=== PATIENT | male | born 1940 | race Caucasian/White ===

== ENCOUNTER 2020-05-01 11:04 | Inpatient (IN) ==
[2020-05-01] MEDS ORDERED: MAGNESIUM SULFATE / D5W 1 GM/100 ML BAG IV SCH (12:12)
[2020-05-01] MEDS ORDERED: SODIUM CHLORIDE 0.9% 1000ML 1,000 ML IV SCH (12:15)
--- NOTE | 2020-05-01 12:38 | XRay Report ---
XR chest 1V portable CLINICAL HISTORY: weakness COMPARISON STUDY: 01/20/2018 FINDINGS: The heart is at the upper limits of normal in size. There is a left subclavian dual-chamber central venous pacemaker. There are asymmetric bilateral pulmonary airspace opacities. Likely diagno stic considerations include multifocal pneumonitis versus asymmetric edema. There are no significant pleural effusions.[ IMPRESSION: Asymmetric bilateral pulmonary airspace opacities. A multifocal pneumonia is favored over asymmetric pulmonary edema. Correlation with Covid 19 testing is recommended. Clinical and radiograp hic follow-up is recommended as well. ACT 112: Negative or not required by law. Electronically signed by: Maynor Amezquita M.D. 05/01/2020 12:37 PM
[2020-05-01 13:23] LABS: Basophils # (auto) 0.01 K/uL (0-0.2); Basophils % (auto) 0.2 %; Hematocrit (blood only) 52.5 % (42-52); Hemoglobin 17.8 g/dL (14.0-18.0); Immature Granulocytes # (auto) 0.02 K/uL (0.00-0.02); Immature Granulocytes % (auto) 0.4 %; Lymphocytes # (auto) 1.17 K/uL (1.2-3.4); Lymphocytes % (auto) 20.9 %; Mean Corpuscular Hgb Conc 33.9 g/dL (32-36); Mean Corpuscular Volume 91.5 fL (80-100); Mean Platelet Volume 10.7 fL (7.4-10.4); Monocytes # (auto) 0.46 K/uL (0.11-0.59); Monocytes % (auto) 8.2 %; Neutrophils # (auto) 3.94 K/uL (1.4-6.5); Neutrophils % (auto) 70.3 %; Platelet Count 176 K/uL (130-400); RDW Coefficient of Variation 13.8 % (11.5-14.5); RDW Standard Deviation 46.2 fL (36.4-46.3); Red Blood Count 5.74 M/uL (4.7-6.1)
[2020-05-01] MEDS ORDERED: dilTIAZem HCl 5 MG/ML 5 ML VIAL IV STA (13:34)
[2020-05-01] MEDS ORDERED: STAT IV Infusion **Titration per Protocol STA (13:34)
[2020-05-01 13:44] LABS: Alanine Aminotransferase 25 U/L (12-78); Albumin Level 3.4 gm/dl (3.4-5.0); Aspartate Aminotransferase 29 U/L (15-37); Blood Urea Nitrogen 27 mg/dl (7-18); Calcium 8.8 mg/dl (8.5-10.1); Carbon Dioxide 29 mmol/L (21-32); Chloride 105 mmol/L (98-107); Creatinine Clr Calc Pharmacy 43.2 ml/min; Est GFR (African American) 57.2; Est GFR (Non-African American) 49.3; Glucose 163 mg/dl (70-99); Lipase 101 U/L (73-393); Magnesium 2.4 mg/dl (1.8-2.4); Potassium 4.1 mmol/L (3.5-5.1); Sodium 139 mmol/L (136-145)
[2020-05-01 13:45] LABS: Influenza A virus by PCR Negative (Negative); Influenza B virus by PCR Negative (Negative)
[2020-05-01 13:51] LABS: Prothrombin Time 62.8 Seconds (9.0-12.0)
[2020-05-01 13:55] LABS: Albumin Globulin Ratio 0.8 (0.9-2); Alkaline Phosphatase 63 U/L (45-117); Globulin 4.3 gm/dl (2.5-4.0); Total Protein 7.7 gm/dl (6.4-8.2); Troponin I < 0.015 ng/ml (0-0.045)
[2020-05-01 14:05] LABS: INR 6.6 (0.9-1.1)
[2020-05-01] MEDS ORDERED: DEXAMETHASONE SOD INJ 10 MG/ML VIAL IV ONE (14:23)
[2020-05-01] MEDS: dilTIAZem HCL 125 MG in DEXTROSE 5% 100 ML IV SCH (14:24)
--- NOTE | 2020-05-01 14:26 | Electrocardiogram Report ---
Test Reason : Blood Pressure : / mmHG Vent. Rate : 113 BPM Atrial Rate : 174 BPM P-R Int : 000 ms QRS Dur : 080 ms QT Int : 290 ms P-R-T Axes : 000 -26 004 degrees QTc Int : 397 ms Poor data quality, interpretation may be adversely affected Atrial fibrillation with rapid ventricular response Nonspecific ST abnormality Abnormal ECG When compared with ECG of 20-JAN-2018 12:46, T wave inversion more evident in Inferior leads Confirmed by Lonnie Alvarez ([id number]) on 05/01/2020 2:25:49 PM Referred By: REFERRED SELF Confirmed By:Lonnie Alvarez
--- NOTE | 2020-05-01 15:35 | History & Physical Report ---
Date of Service May 01, 2020 History of Present Illness Primary Care Provider: NO PCP Oswaldo Shah is an 80 year old male who presents to the ER with 2 weeks of shortness of breath, coughing up brown gunk. Took metoporolol only this morning. Chronic a. gib quit smoking 2015 Allergies Allergy/AdvReac Type Severity Reaction Status Date / Time No Known Allergies Allergy Verified 05/01/20 13:40 Home Medications Medication Instructions Recorded Confirmed Type digoxin 125 mcg (0.125 mg) tablet 125 mcg PO QAM tab 02/20/19 05/01/20 History metoprolol succinate 50 mg 50 mg PO BID tab 02/20/19 05/01/20 History tablet,extended release 24 hr multivitamin 1 tab PO QAM 02/20/19 05/01/20 History warfarin 6 mg tablet See Rx Instructions PO .COMPLEX 02/21/19 05/01/20 History tab methimazole 2.5 mg PO QAM 05/01/20 05/01/20 History Past Med/Surg History Medical History Goiter Graves disease Hyperthyroidism Pacemaker 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) Surgical History History of back surgery History of ear surgery History of permanent cardiac pacemaker placement Hx of colonoscopy Social History Smoking Status: Never smoker Hx Alcohol Use: Yes marital status: current occupational status: retired other: 5 Children Feels Safe at Home: Yes Results & Data Results & Data ([facility]) Vital Signs (Past 12 Hours) Vital Signs Temp Pulse Pulse Resp BP BP Pulse Ox 05/01/20 14:20 87 23 95 05/01/20 14:10 88 91 05/01/20 14:01 90 118/72 92 05/01/20 14:00 99 H 92 05/01/20 13:50 96 H 20 93 05/01/20 13:40 96 H 93 05/01/20 13:30 92 H 18 121/85 91 05/01/20 13:20 101 H 91 05/01/20 13:10 115 H 91 05/01/20 13:04 120 H 20 108/77 91 05/01/20 13:00 99 H 108/77 91 05/01/20 12:50 121 H 22 92 05/01/20 12:40 96 H 92 05/01/20 12:30 133 H 91 05/01/20 12:20 109 H 16 91 05/01/20 12:13 115 H 20 91 05/01/20 12:01 153 H 17 128/84 93 05/01/20 11:11 36.6 C 65 20 103/66 99 PG Care Time/CCT Total # of Minutes Spent Total Time Spent with Patient: Total time spent is greater than 50% in coordina tion of care (as documented) at patient's floor/unit and/or counseling patient: Coding
--- NOTE | 2020-05-01 16:43 | History & Physical Report ---
Date of Service May 01, 2020 Assessment & Plan (1) Pneumonia due to COVID-19 virus: Hypoxic in the ED with sats into the upper 80s on room air - improved with 2L of O2 - Continue O2 therapy titrated to effect - Dexamethasone started in the ED - continue 6 mg IV daily up to a 10 day course - Meets criteria for remdesevir with hypoxia requiring O2 therapy and creatinine clearance >30 - ordered 5 day course, checking daily CMP (2) Atrial fibrillation with RVR: On Toproxl XL 100 mg BID and digoxin 0.125 mg daily as outpatient - currently rate-controlled on diltiazem gtt. Suspect related to #1. - Continue home meds and diltiazem for now with close monitoring of rate on telemetry - Consult cardiology for additional recommendations for ongoing management - Warfarin on hold due to elevated INR at presentation (3) Graves disease: TSH on admission is 3.15 - Continue methimazole at home dose (4) COPD (chronic obstructive pulmonary disease): Not on any medications for this at baseline - no wheezing at present so would not add prn inhalers (5) Elevated INR: On chronic anticoagulation due to history of atrial fibrillation - warfarin currently on hold - Daily INR - No additional pharmacologic DVT prophylaxis ordered at present due to supratherapeutic INR - will need to monitor closely (6) Pre-diabetes: Pt states that he does not check his sugars nor take any medications for this at home. However, likely to have hyperglycemia on dexamethasone so will need to monitor closely. - Diabetic diet - Check A1c in the morning - Sliding scale insulin coverage Pt seen and reviewed with collaborating physician, Dr. Pereyra. Plan of care discussed and as outlined above. Pt requests to be a DNR/DNI. Dolores Britton PA-C History of Present Illness Chief Complaint: Cough x 10 days Primary Care Provider: Jenny Charles DO This is a 80 y/o male with a PMH of PAF on chronic anticoagulation, tachy-chaz syndrome s/p PPM placement, COPD, Graves disease, and prediabetes who presented to the ED today with ongoing productive cough and chest congestion. He states that his was concerned about his lack of improvement and wanted him evaluated so he came to the ED. In the ED, he was found to be in atrial fibrillation with RVR and diagnosed with COVID-19. CXR was concerning for multifocal pneumonia and pt found to have hypoxia with pulseox on room air in the upper 80s. He was started on 2L of O2 with improvement. Given diltiazem 10 mg IV x 1 then started on gtt for rate control. Pt currently reports feeling m uch better than on arrival. His symptoms started about a week and a half ago with chest congestion then a cough productive of green to brown sputum. Denies hemoptysis. He has also noticed lightheadedness with ambulation although denies dyspnea on exertion. No shortness of breath at rest or wheezing. He denies chest pain but has noted chest tightness. Denies palpitations or racing heart even when he was in afib with RVR. He has noted a loss of appetite with abnormal taste and small at home although this now seems to be improving. Two days ago he noted that his urine was "strong" and very dark in color but denies hematuria. He reports drinking adequate fluids - water, danish elfego, red marlyn tea. Denies N/V/D. He has been fatigued but denies myalgias, back pain or neck pain. No known contact with someone who is COVID positive. No sick contacts at home. Allergies Allergy/AdvReac Type Severity Reaction Status Date / Time No Known Allergies Allergy Verified 05/01/20 13:40 Home Medications Medication Instructions Recorded Confirmed Type digoxin 125 mcg (0.125 mg) tablet 125 mcg PO QAM tab 02/20/19 05/01/20 History multivitamin 1 tab PO QAM 02/20/19 05/01/20 History methimazole 2.5 mg PO QAM 05/01/20 05/01/20 History metoprolol succinate 100 mg PO Q12H 05/01/20 05/01/20 History warfarin 2.5 mg PO MOWEFR 05/01/20 05/01/20 History warfarin 5 mg PO SUTUTHSA 05/01/20 05/01/20 History 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) Surgical History History of back surgery 1970 History of ear surgery History of permanent cardiac pacemaker placement Hx of colonoscopy Family History Mother Atrial fibrillation Father Stroke Social History (Updated 05/01/20 @ 16:07 by Cynthia Carvajal PA-C) Smoking Status: Former smoker packs per day: 1; Years Smoked: 45; Hx Alcohol Use: No Hx Substance Use: No Preferred Language: Uzbek Communication Ability: Effective marital status: current occupational status: retired other: 5 Children Feels Safe at Home: Yes Review of Systems Review of Systems: All systems reviewed & are unremarkable except as noted in HPI & below Constitutional: + fatigue and + anorexia; no fever, no chills and no body aches Ear, Nose, Mouth, Throat: + sore throat; no nasal congestion and no nasal discharge Respiratory: as per Subjective / HPI, + cough, + chest congestion and + change in sputum; no hemoptysis and no wheezing Cardiovascular: no chest pain, no dyspnea on exertion, no palpitations, no syncope and no edema Gastrointestinal: no abdominal pain, no nausea, no vomiting, no diarrhea/loose stools and no blood in stools Genitourinary: no difficulty urinating, no urinary frequency and no hematuria Musculoskeletal: no back pain, no neck pain, no myalgia and no muscle weakness Integumentary: no rash, no non-healing lesions and no skin ulcer Neurologic: + dizziness; no generalized weakness and no headache(s) Physical Exam Constitutional: well developed and well nourished; no acute distress Eyes: + anicteric sclerae Neck: trachea midline Respiratory: no respiratory distress and no labored breathing Auscultation: lungs clear to auscultation bilaterally and + diminished lung sounds (mildly - cough at times with deep breathing); no rales and no rhonchi Cardiovascular: Rate/Rhythm: + irregularly irregular Heart Sounds: no gallop and no cardiac rub Extremities: no pedal edema Gastrointestinal (Abdomen): Inspection/Auscultation: normal bowel sounds; abdomen not distended Percussion/Palpation: abdomen soft; abdomen nontender Musculoskeletal: Extremities: no cyanosis Skin: no rashes, warm and dry Neurologic: no focal motor deficits Psychiatric: A+Ox3, euthymic affect Results & Data Results & Data ([facility]) Vital Signs (Past 12 Hours) Vital Signs Temp Pulse Pulse Resp BP BP Pulse Ox 05/01/20 15:00 79 24 121/79 96 05/01/20 14:20 87 23 95 05/01/20 14:10 88 91 05/01/20 14:01 90 118/72 92 05/01/20 14:00 99 H 92 05/01/20 13:50 96 H 20 93 05/01/20 13:40 96 H 93 05/01/20 13:30 92 H 18 121/85 91 05/01/20 13:20 101 H 91 05/01/20 13:10 115 H 91 05/01/20 13:04 120 H 20 108/77 91 05/01/20 13:00 99 H 108/77 91 05/01/20 12:50 121 H 22 92 05/01/20 12:40 96 H 92 05/01/20 12:30 133 H 91 05/01/20 12:20 109 H 16 91 05/01/20 12:13 115 H 20 91 05/01/20 12:01 153 H 17 128/84 93 05/01/20 11:11 36.6 C 65 20 103/66 99 Laboratory Results Laboratory Results - last 24 hr 05/01/20 05/01/20 05/01/20 12:53 12:53 12:53 WBC 5.60 RBC 5.74 Hgb 17.8 Hct 52.5 H MCV 91.5 MCH 31.0 MCHC 33.9 RDW Std Deviation 46.2 RDW Coeff of Williams 13.8 Plt Count 176 MPV 10.7 H Immature Gran % (Auto) 0.4 Neut % (Auto) 70.3 Lymph % (Auto) 20.9 Forest % (Auto) 8.2 Eos % (Auto) 0.0 Baso % (Auto) 0.2 Neut # (Auto) 3.94 Lymph # (Auto) 1.17 L Forest # (Auto) 0.46 Eos # (Auto) 0.00 Baso # (Auto) 0.01 Immature Gran # (Auto) 0.02 PT 62.8 H INR 6.6 H* Sodium 139 Potassium 4.1 Chloride 105 Carbon Dioxide 29 Anion Gap 5.0 BUN 27 H Creatinine 1.34 Est Cr Clr Drug Dosing 43.2 Est GFR ( Amer) 57.2 Est GFR (Non-Af Amer) 49.3 BUN/Creatinine Ratio 20.0 Glucose 163 H Calcium 8.8 Magnesium 2.4 Total Bilirubin 1.0 AST 29 ALT 25 Alkaline Phosphatase 63 Troponin I < 0.015 Total Protein 7.7 Albumin 3.4 Globulin 4.3 H Albumin/Globulin Ratio 0.8 L Lipase 101 TSH 3.150 Digoxin COVID-19 Eval Order Nasopharyn COVID-19 PCR Influ A Molecular Assay Influ B Molecular Assay SARS-CoV-2, RNA, NAAT 05/01/20 05/01/20 05/01/20 12:53 13:07 13:07 WBC RBC Hgb Hct MCV MCH MCHC RDW Std Deviation RDW Coeff of Williams Plt Count MPV Immature Gran % (Auto) Neut % (Auto) Lymph % (Auto) Forest % (Auto) Eos % (Auto) Baso % (Auto) Neut # (Auto) Lymph # (Auto) Forest # (Auto) Eos # (Auto) Baso # (Auto) Immature Gran # (Auto) PT INR Sodium Potassium Chloride Carbon Dioxide Anion Gap BUN Creatinine Est Cr Clr Drug Dosing Est GFR ( Amer) Est GFR (Non-Af Amer) BUN/Creatinine Ratio Glucose Calcium Magnesium Total Bilirubin AST ALT Alkaline Phosphatase Troponin I Total Protein Albumin Globulin Albumin/Globulin Ratio Lipase TSH Digoxin 0.6 L COVID-19 Eval [facility] COVID-19 PCR Influ A Molecular Assay Negative Influ B Molecular Assay Negative SARS-CoV-2, RNA, NAAT 05/01/20 05/01/20 13:07 13:07 WBC RBC Hgb Hct MCV MCH MCHC RDW Std Deviation RDW Coeff of Williams Plt Count MPV Immature Gran % (Auto) Neut % (Auto) Lymph % (Auto) Forest % (Auto) Eos % (Auto) Baso % (Auto) Neut # (Auto) Lymph # (Auto) Forest # (Auto) Eos # (Auto) Baso # (Auto) Immature Gran # (Auto) PT INR Sodium Potassium Chloride Carbon Dioxide Anion Gap BUN Creatinine Est Cr Clr Drug Dosing Est GFR ( Amer) Est GFR (Non-Af Amer) BUN/Creatinine Ratio Glucose Calcium Magnesium Total Bilirubin AST ALT Alkaline Phosphatase Troponin I Total Protein Albumin Globulin Albumin/Globulin Ratio Lipase TSH Digoxin COVID-19 Eval Order Nasopharyn COVID-19 PCR Cancelled Influ A Molecular Assay Influ B Molecular Assay SARS-CoV-2, RNA, NAAT POSITIVE A* Diagnostic Findings Chest X-ray 05/01/20 - IMPRESSION: Asymmetric bilateral pulmonary airspace opacities. A multifocal pneumonia is favored over asymmetric pulmonary edema. Correlation with Covid 19 testing is recommended. Clinical and radiographic follow-up is recommended as well. Medications Administered Diltiazem HCl 125 mg/ Dextrose 125 mls @ 5 mls/hr IV .Q24H CHONG; Protocol Stop: 05/31/20 13:44 Last Admin: 05/01/20 14:24 Dose: 5 mg/hr, 5 mls/hr Documented by: [id number] Cosigned by: [id number] Discontinued Medications Dexamethasone (Dexamethasone Sod Inj 10 Mg/Ml Vial) 6 mg IV NOW ONE Stop: 05/01/20 14:24 Last Admin: 05/01/20 14:32 Dose: 6 mg Documented by: [id number] Diltiazem HCl (Diltiazem Hcl 5 Mg/Ml 5 Ml Vial) 10 mg IV NOW STA Stop: 05/01/20 13:35 Last Admin: 05/01/20 14:25 Dose: 10 mg Documented by: [id number] Cosigned by: [id number] Sodium Chloride (Nss 1000ml) 1,000 mls @ 999 mls/hr IV .Q1H1M CHONG Stop: 05/01/20 13:15 Last Infusion: 05/01/20 15:03 Dose: 0 mls/hr Documented by: [id number] Admin: 05/01/20 13:05 Dose: 999 mls/hr Documented by: [id number] Magnesium Sulfate/Dextrose (Magnesium Sulfate / D5w) 1 gm in 100 mls @ 400 mls/hr IV Q15M CHONG Stop: 05/01/20 12:26 Last Infusion: 05/01/20 15:03 Dose: 0 mls/hr Documented by: [id number] Admin: 05/01/20 13:06 Dose: 400 mls/hr Documented by: [id number] Miscellaneous (Stat Iv Infusion Titration Per Protocol) 1 ea N/A NOW STA Stop: 05/01/20 13:35 Last Admin: 05/01/20 14:25 Dose: Not Given Documented by: [id number] Code Status & VTE Plan VTE Prophylaxis Plan VTE Prophylaxis will be ordered: Yes Supervising Physician Co-Signing Physician Notes I saw this patient with the physician library assistant, I participated in the history, physical, review of systems, and physical exam. I reviewed the medications with the patient and the physician library assistant and helped reconcile the medications. I helped take a detailed family and social history as well. I formulated the assessment and plan personally with the physician library assistant and went over it with the patient. Physical Exam Gen-AAO x 3, NAD, Afebrile Head-NCAT, EOMI, PERRLA, Anicteric Sclera, No Posterior Pharyngeal Erythema Neck-Supple, No JVD, No Thyromegaly, No Masses, No LAD, No Bruits Lungs-Clear to Auscultation Bilaterally, No Rales, No Rhonchi, No Wheezing, No Crepitus Chest-No S4, +S1, +S2, No S3, No Murmurs, No Rubs, No Gallops, No Ectopy Abdomen-Soft, Bowel Sounds Present, Non Tender, Non Distended, No Hepatomegaly, No Splenomegaly, No Palpable Masses, No Rebound, No Rigidity, No Guarding Musculoskeletal-Full Range of Motion Bilaterally, No CVAT Extremities-No Cyanosis, No Clubbing, No Edema Nuero-Cranial Nerves II-XII grossly intact, Motor WNL, DTRs WNL, Strength WNL, Non Focal Psych-Normal Mood
--- NOTE | 2020-05-01 17:51 | Emergency Department Note ---
Impression & Plan Pneumonia due to COVID-19 virus, Atrial fibrillation with RVR, Elevated INR ED Provider Note Provider: Samm Ramirez MD DATE OF SERVICE:05/01/2020 CHIEF COMPLAINT: HISTORY OF PRESENT ILLNESS: Patient is a 80-year-old gentleman history of COPD and atrial fibrillation on digoxin and Coumadin presenting here today complaining of shortness of breath and coughing up some brown sputum over the past 2 weeks or so. Worse has been having a fever. Patient states he always gets bronchitis or respiratory issue like this in the fall and thus presents here for evaluation. Denies going out a recent exposure although states his girlfriend does work at a grocery store. Denies significant chest pain or abdominal pain or nausea. Patient states has been taking his home medications. Denies any falls or syncopal episodes. Patient states he does feel a little bit cold. Denies using any inhalers at home. Not only on oxygen at home. REVIEW OF SYSTEMS: A total of 10 review of systems was obtained and negative except as stated above in the HPI. PAST MEDICAL HISTORY: As noted above MEDICATIONS: Reviewed home medication list include digoxin and Coumadin SOCIAL HISTORY: Lives at home with girlfriend former smoker PHYSICAL EXAM: GENERAL: alert and oriented in no acute distress on stretcher Head: normocephalic and atraumatic EYES: No injection, discharge or icterus. NECK: Trachea midline. Supple. LUNGS: Airway patent. No retractions. Slight tachypnea but no significant work of breathing. HEART: Irregular tachycardic rate and rhythm. No chest wall tenderness ABDOMEN: Soft and non-tender, without guarding or rebound. SKIN: Acyanotic, warm, dry, without rashes EXTREMITIES: Without swelling, tenderness or deformity NEUROLOGICAL: No focal deficits. No aphasia. No facial droop or slurred speech. Ambulatory. EK bpm atrial fibrillation rapid ventricular spines. No acute ST segment elevation is noted but some baseline artifact does exist. 2 inversions in inferior leads is noted compared to previous from January 20, 2018 to versions appear somewhat increased. CONTINUOUS CARDIAC MONITORING: was ordered and showed a heart rate of bpm in Patient's laboratory studies and imaging reviewed. Differential includes Infection, dehydration, metabolic abnormality, hypo/hyp erglycemia, electrolyte disturbance, anemia, hypoxia, cardiac sources, intracerebral event, toxicologic, neurologic, as well as other pathologies. IMPRESSION/MEDICAL DECISION MAKING: Patient resents complaining of cough and shortness of breath possible fevers last several weeks concern for possible coronavirus. Maintained on isolation. Coronavirus test does return positive. X-ray findings with multiple airspace opacities but no significant cytosis and lower suspicion for a bacterial compon ent here. No significant anemia is noted but INR is elevated 6.6. No significant lecture light abnormality and renal function appears stable compared to previous. No evidence of acute transaminitis or pancreatitis. Troponin is negative and EKG without significant ischemic changes I doubt ACS. Is in rapid A. fib and given diltiazem for improvement of this. Digoxin level is somewhat low today. TSH within normal limits do not believe this is related to Graves' disease exacerbation. Influenza testing was negative. While being evaluated here patient initially in the very low 90s eventually desats into the high 80s requiring some minimal amount of nasal cannula oxygen to hold above 90% while resting. Not significant wheezing and do not believe inhalers/nebulizers would improve much at this point may exacerbate his underlying A. fib. Given the hypoxia with Covid did give a dose of dexamethasone. Given his multiple comorbidities and issues here feel that further care here in the hospital is warranted and patient was agreement. The hospitalist team was contacted. I doubt significant acute bleeding at this time no feel we need further imaging although the patient will need his Coumadin held given his elevated INR. DIAGNOSIS: Atrial fibrillation with biventricular spines, COVID-19 pneumonia, elevated INR DISPOSITION: Hospitalist will evaluate Patient was agreeable with this plan. Critical Care I have personally spent 33 minutes of critical care time in the direct management of this patient. This includes bedside care, interpretation of diag nostic studies, and testing, discussion with consultants, patient, and family members, and other required patient management activities. These 33 minutes is in excess of all separately billable procedures. 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) Surgical History History of back surgery 1970 History of ear surgery History of permanent cardiac pacemaker placement Hx of colonoscopy Family History Mother Atrial fibrillation Father Stroke Social History (Updated 05/01/20 @ 16:07 by Cynthia Carvajal PA-C) Smoking Status: Former smoker packs per day: 1; Years Smoked: 45; Hx Alcohol Use: No Hx Substance Use: No Preferred Language: Tajik Communication Ability: Effective marital status: current occupational status: retired other: 5 Children Feels Safe at Home: Yes Allergies Allergies Allergy/AdvReac Type Severity Reaction Status Date / Time No Known Allergies Allergy Verified 05/01/20 13:40 Home Meds Home Medications Medication Instructions Recorded Confirmed digoxin 125 mcg (0.125 mg) tablet 125 mcg PO QAM tab 02/20/19 05/01/20 multivitamin 1 tab PO QAM 02/20/19 05/01/20 methimazole 2.5 mg PO QAM 05/01/20 05/01/20 metoprolol succinate 100 mg PO Q12H 05/01/20 05/01/20 warfarin 2.5 mg PO MOWEFR 05/01/20 05/01/20 warfarin 5 mg PO SUTUTHSA 05/01/20 05/01/20 Results & Data (ED) Vital Signs Vital Signs - 24 hr 05/01/20 11:11 05/01/20 12:01 05/01/20 12:13 Temperature 36.6 C Temperature Source Temporal Artery Scan Pulse Rate 65 153 H 115 H Pulse Rate [Apical] Pulse Rate from SpO2 Sensor 94 H 105 H Respiratory Rate 20 17 20 Respiratory Effort / Characteristics Respiratory Depth Normal Blood Pressure 103/66 128/84 Blood Pressure [Left Arm] Blood Pressure Mean 78 112 Blood Pressure Mean [Left Arm] Blood Pressure Position [Left Arm] Pulse Oximetry 99 93 91 Oxygen Delivery Method Room Air Oxygen Flow Rate Sepsis Recent Fever Within 48 Hours No Sepsis New/Unexplained Change in Mental Status No Sepsis Action Taken by Nursing No Action Required 05/01/20 12:20 05/01/20 12:30 05/01/20 12:40 Temperature Temperature Source Pulse Rate 109 H 133 H 96 H Pulse Rate [Apical] Pulse Rate from SpO2 Sensor 92 H 99 H 93 H Respiratory Rate 16 Respiratory Effort / Characteristics Respiratory Depth Blood Pressure Blood Pressure [Left Arm] Blood Pressure Mean Blood Pressure Mean [Left Arm] Blood Pressure Position [Left Arm] Pulse Oximetry 91 91 92 Oxygen Delivery Method Oxygen Flow Rate Sepsis Recent Fever Within 48 Hours Sepsis New/Unexplained Change in Mental Status Sepsis Action Taken by Nursing 05/01/20 12:50 05/01/20 13:00 05/01/20 13:04 Temperature Temperature Source Pulse Rate 121 H 99 H Pulse Rate [Apical] 120 H Pulse Rate from SpO2 Sensor 87 96 H Respiratory Rate 22 20 Respiratory Effort / Characteristics Respiratory Depth Blood Pressure 108/77 Blood Pressure [Left Arm] 108/77 Blood Pressure Mean 87 Blood Pressure Mean [Left Arm] 87 Blood Pressure Position [Left Arm] Pulse Oximetry 92 91 91 Oxygen Delivery Method Room Air Oxygen Flow Rate Sepsis Recent Fever Within 48 Hours Sepsis New/Unexplained Change in Mental Status Sepsis Action Taken by Nursing 05/01/20 13:10 05/01/20 13:20 05/01/20 13:30 Temperature Temperature Source Pulse Rate 115 H 101 H 92 H Pulse Rate [Apical] Pulse Rate from SpO2 Sensor 94 H 89 104 H Respiratory Rate 18 Respiratory Effort / Characteristics Respiratory Depth Blood Pressure 121/85 Blood Pressure [Left Arm] Blood Pressure Mean 94 Blood Pressure Mean [Left Arm] Blood Pressure Position [Left Arm] Pulse Oximetry 91 91 91 Oxygen Delivery Method Oxygen Flow Rate Sepsis Recent Fever Within 48 Hours Sepsis New/Unexplained Change in Mental Status Sepsis Action Taken by Nursing 05/01/20 13:40 05/01/20 13:50 05/01/20 14:00 Temperature Temperature Source Pulse Rate 96 H 96 H 99 H Pulse Rate [Apical] Pulse Rate from SpO2 Sensor 104 H 109 H 83 Respiratory Rate 20 Respiratory Effort / Characteristics Respiratory Depth Blood Pressure Blood Pressure [Left Arm] Blood Pressure Mean Blood Pressure Mean [Left Arm] Blood Pressure Position [Left Arm] Pulse Oximetry 93 93 92 Oxygen Delivery Method Oxygen Flow Rate Sepsis Recent Fever Within 48 Hours Sepsis New/Unexplained Change in Mental Status Sepsis Action Taken by Nursing 05/01/20 14:01 05/01/20 14:10 05/01/20 14:20 Temperature Temperature Source Pulse Rate 90 88 87 Pulse Rate [Apical] Pulse Rate from SpO2 Sensor 99 H 91 H 93 H Respiratory Rate 23 Respiratory Effort / Characteristics Respiratory Depth Blood Pressure 118/72 Blood Pressure [Left Arm] Blood Pressure Mean 79 Blood Pressure Mean [Left Arm] Blood Pressure Position [Left Arm] Pulse Oximetry 92 91 95 Oxygen Delivery Method Oxygen Flow Rate Sepsis Recent Fever Within 48 Hours Sepsis New/Unexplained Change in Mental Status Sepsis Action Taken by Nursing 05/01/20 15:00 Temperature Temperature Source Pulse Rate Pulse Rate [Apical] 79 Pulse Rate from SpO2 Sensor Respiratory Rate 24 Respiratory Effort / Characteristics Non-Labored Spontaneous Respiratory Depth Normal Blood Pressure Blood Pressure [Left Arm] 121/79 Blood Pressure Mean Blood Pressure Mean [Left Arm] 93 Blood Pressure Position [Left Arm] Sitting Pulse Oximetry 96 Oxygen Delivery Method Nasal Cannula Oxygen Flow Rate 3 Sepsis Recent Fever Within 48 Hours Sepsis New/Unexplained Change in Mental Status Sepsis Action Taken by Nursing Laboratory Data Result diagrams: 05/01/20 12:53 05/01/20 12:53 Lab Results 05/01/20 05/01/20 05/01/20 Range/Units 12:53 12:53 12:53 WBC 5.60 (4.8-10.8) K/uL RBC 5.74 (4.7-6.1) M/uL Hgb 17.8 (14.0-18.0) g/dL Hct 52.5 H (42-52) % MCV 91.5 (80-100) fL MCH 31.0 (25-34) pg MCHC 33.9 (32-36) g/dL RDW Std Deviation 46.2 (36.4-46.3) fL RDW Coeff of Williams 13.8 (11.5-14.5) % Plt Count 176 (130-400) K/uL MPV 10.7 H (7.4-10.4) fL Immature Gran % (Auto) 0.4 % Neut % (Auto) 70.3 % Lymph % (Auto) 20.9 % Crosby % (Auto) 8.2 % Eos % (Auto) 0.0 % Baso % (Auto) 0.2 % Neut # (Auto) 3.94 (1.4-6.5) K/uL Lymph # (Auto) 1.17 L (1.2-3.4) K/uL Crosby # (Auto) 0.46 (0.11-0.59) K/uL Eos # (Auto) 0.00 (0-0.5) K/uL Baso # (Auto) 0.01 (0-0.2) K/uL Immature Gran # (Auto) 0.02 (0.00-0.02) K/uL PT 62.8 H (9.0-12.0) Seconds INR 6.6 H* (0.9-1.1) Sodium 139 (136-145) mmol/L Potassium 4.1 (3.5-5.1) mmol/L Chloride 105 (98-107) mmol/L Carbon Dioxide 29 (21-32) mmol/L Anion Gap 5.0 (3-11) BUN 27 H (7-18) mg/dl Creatinine 1.34 (0.6-1.4) mg/dl Est Cr Clr Drug Dosing 43.2 ml/min Est GFR ( Amer) 57.2 Est GFR (Non-Af Amer) 49.3 BUN/Creatinine Ratio 20.0 (10-20) Glucose 163 H (70-99) mg/dl Calcium 8.8 (8.5-10.1) mg/dl Magnesium 2.4 (1.8-2.4) mg/dl Total Bilirubin 1.0 (0.2-1) mg/dl AST 29 (15-37) U/L ALT 25 (12-78) U/L Alkaline Phosphatase 63 (45-117) U/L Troponin I < 0.015 (0-0.045) ng/ml Total Protein 7.7 (6.4-8.2) gm/dl Albumin 3.4 (3.4-5.0) gm/dl Globulin 4.3 H (2.5-4.0) gm/dl Albumin/Globulin Ratio 0.8 L (0.9-2) Lipase 101 (73-393) U/L TSH 3.150 (0.300-4.500) uIu/ml Digoxin (0.8-2.0) ng/ml COVID-19 Eval Order Nasopharyn COVID-19 PCR Influ A Molecular Assay (Negative) Influ B Molecular Assay (Negative) SARS-CoV-2, RNA, NAAT (NEGATIVE) 05/01/20 05/01/20 05/01/20 Range/Units 12:53 13:07 13:07 WBC (4.8-10.8) K/uL RBC (4.7-6.1) M/uL Hgb (14.0-18.0) g/dL Hct (42-52) % MCV (80-100) fL MCH (25-34) pg MCHC (32-36) g/dL RDW Std Deviation (36.4-46.3) fL RDW Coeff of Williams (11.5-14.5) % Plt Count (130-400) K/uL MPV (7.4-10.4) fL Immature Gran % (Auto) % Neut % (Auto) % Lymph % (Auto) % Crosby % (Auto) % Eos % (Auto) % Baso % (Auto) % Neut # (Auto) (1.4-6.5) K/uL Lymph # (Auto) (1.2-3.4) K/uL Crosby # (Auto) (0.11-0.59) K/uL Eos # (Auto) (0-0.5) K/uL Baso # (Auto) (0-0.2) K/uL Immature Gran # (Auto) (0.00-0.02) K/uL PT (9.0-12.0) Seconds INR (0.9-1.1) Sodium (136-145) mmol/L Potassium (3.5-5.1) mmol/L Chloride (98-107) mmol/L Carbon Dioxide (21-32) mmol/L Anion Gap (3-11) BUN (7-18) mg/dl Creatinine (0.6-1.4) mg/dl Est Cr Clr Drug Dosing ml/min Est GFR ( Amer) Est GFR (Non-Af Amer) BUN/Creatinine Ratio (10-20) Glucose (70-99) mg/dl Calcium (8.5-10.1) mg/dl Magnesium (1.8-2.4) mg/dl Total Bilirubin (0.2-1) mg/dl AST (15-37) U/L ALT (12-78) U/L Alkaline Phosphatase (45-117) U/L Troponin I (0-0.045) ng/ml Total Protein (6.4-8.2) gm/dl Albumin (3.4-5.0) gm/dl Globulin (2.5-4.0) gm/dl Albumin/Globulin Ratio (0.9-2) Lipase (73-393) U/L TSH (0.300-4.500) uIu/ml Digoxin 0.6 L (0.8-2.0) ng/ml COVID-19 Eval [facility]-19 PCR Influ A Molecular Assay Negative (Negative) Influ B Molecular Assay Negative (Negative) SARS-CoV-2, RNA, NAAT (NEGATIVE) 05/01/20 05/01/20 Range/Units 13:07 13:07 WBC (4.8-10.8) K/uL RBC (4.7-6.1) M/uL Hgb (14.0-18.0) g/dL Hct (42-52) % MCV (80-100) fL MCH (25-34) pg MCHC (32-36) g/dL RDW Std Deviation (36.4-46.3) fL RDW Coeff of Williams (11.5-14.5) % Plt Count (130-400) K/uL MPV (7.4-10.4) fL Immature Gran % (Auto) % Neut % (Auto) % Lymph % (Auto) % Crosby % (Auto) % Eos % (Auto) % Baso % (Auto) % Neut # (Auto) (1.4-6.5) K/uL Lymph # (Auto) (1.2-3.4) K/uL Crosby # (Auto) (0.11-0.59) K/uL Eos # (Auto) (0-0.5) K/uL Baso # (Auto) (0-0.2) K/uL Immature Gran # (Auto) (0.00-0.02) K/uL PT (9.0-12.0) Seconds INR (0.9-1.1) Sodium (136-145) mmol/L Potassium (3.5-5.1) mmol/L Chloride (98-107) mmol/L Carbon Dioxide (21-32) mmol/L Anion Gap (3-11) BUN (7-18) mg/dl Creatinine (0.6-1.4) mg/dl Est Cr Clr Drug Dosing ml/min Est GFR ( Amer) Est GFR (Non-Af Amer) BUN/Creatinine Ratio (10-20) Glucose (70-99) mg/dl Calcium (8.5-10.1) mg/dl Magnesium (1.8-2.4) mg/dl Total Bilirubin (0.2-1) mg/dl AST (15-37) U/L ALT (12-78) U/L Alkaline Phosphatase (45-117) U/L Troponin I (0-0.045) ng/ml Total Protein (6.4-8.2) gm/dl Albumin (3.4-5.0) gm/dl Globulin (2.5-4.0) gm/dl Albumin/Globulin Ratio (0.9-2) Lipase (73-393) U/L TSH (0.300-4.500) uIu/ml Digoxin (0.8-2.0) ng/ml COVID-19 Eval Order Nasopharyn COVID-19 PCR Cancelled Influ A Molecular Assay (Negative) Influ B Molecular Assay (Negative) SARS-CoV-2, RNA, NAAT POSITIVE A* (NEGATIVE) Administered Medications Diltiazem HCl 125 mg/ Dextrose 125 mls @ 5 mls/hr IV .Q24H CHONG; Protocol Stop: 05/31/20 13:44 Last Admin: 05/01/20 14:24 Dose: 5 mg/hr, 5 mls/hr Documented by: [id number] Cosigned by: [id number] Discontinued Medications Dexamethasone (Dexamethasone Sod Inj 10 Mg/Ml Vial) 6 mg IV NOW ONE Stop: 05/01/20 14:24 Last Admin: 05/01/20 14:32 Dose: 6 mg Documented by: [id number] Diltiazem HCl (Diltiazem Hcl 5 Mg/Ml 5 Ml Vial) 10 mg IV NOW STA Stop: 05/01/20 13:35 Last Admin: 05/01/20 14:25 Dose: 10 mg Documented by: [id number] Cosigned by: [id number] Sodium Chloride (Nss 1000ml) 1,000 mls @ 999 mls/hr IV .Q1H1M CHONG Stop: 05/01/20 13:15 Last Infusion: 05/01/20 15:03 Dose: 0 mls/hr Documented by: [id number] Admin: 05/01/20 13:05 Dose: 999 mls/hr Documented by: [id number] Magnesium Sulfate/Dextrose (Magnesium Sulfate / D5w) 1 gm in 100 mls @ 400 mls/hr IV Q15M CHONG Stop: 05/01/20 12:26 Last Infusion: 05/01/20 15:03 Dose: 0 mls/hr Documented by: [id number] Admin: 05/01/20 13:06 Dose: 400 mls/hr Documented by: [id number] Miscellaneous (Stat Iv Infusion Titration Per Protocol) 1 ea N/A NOW STA Stop: 05/01/20 13:35 Last Admin: 05/01/20 14:25 Dose: Not Given Documented by: [id number] Discharge Plan Visit Data Chief Complaint: Illness Stated Complaint: COUGH, NOT EATING,NOT TASTE OR SMELL ED Provider: Samm Ramirez Discharge Problem: Pneumonia due to COVID-19 virus, Atrial fibrillation with RVR, Elevated INR Patient Disposition: Admitted As Inpatient
[2020-05-01] MEDS ORDERED: GLUCAGON FOR INJ 1 MG VIAL SQ PRN (19:05)
[2020-05-01] MEDS ORDERED: CARBOHYDRATES FOR HYPOGLYCEMIA PO PRN (19:05)
[2020-05-01] MEDS ORDERED: DEXTROSE 50% 50 ML SYRINGE IV PRN (19:05)
[2020-05-01] MEDS ORDERED: GLUCOSE 40% GEL 15 GM TUBE PO PRN (19:05)
[2020-05-01] MEDS ORDERED: GLUCOSE 10 TABS/TUBE PO PRN (19:05)
[2020-05-01] MEDS ORDERED: REMDESIVIR 200 MG in SODIUM CHLORIDE 0.9% 210 ML IV STA (19:08)
[2020-05-01] MEDS: METOPROLOL SUCC 50MG EXT REL TAB PO SCH (20:04)
[2020-05-01] MEDS: SODIUM CHLORIDE 0.9% 10ML FLUSH IV SCH (20:04)
[2020-05-01] MEDS: INSULIN ASPART 100 UNITS/ML 3 ML PEN SC SCH (20:54)
[2020-05-02 05:03] LABS: Basophils # (auto) 0.02 K/uL (0-0.2); Basophils % (auto) 0.4 %; Hematocrit (blood only) 50.5 % (42-52); Hemoglobin 16.9 g/dL (14.0-18.0); Immature Granulocytes # (auto) 0.01 K/uL (0.00-0.02); Immature Granulocytes % (auto) 0.2 %; Lymphocytes # (auto) 0.82 K/uL (1.2-3.4); Lymphocytes % (auto) 17.2 %; Mean Corpuscular Hemoglobin 30.5 pg (25-34); Mean Corpuscular Hgb Conc 33.5 g/dL (32-36); Mean Corpuscular Volume 91.2 fL (80-100); Mean Platelet Volume 10.8 fL (7.4-10.4); Monocytes # (auto) 0.24 K/uL (0.11-0.59); Neutrophils # (auto) 3.67 K/uL (1.4-6.5); Neutrophils % (auto) 77.2 %; Platelet Count 186 K/uL (130-400); RDW Coefficient of Variation 13.7 % (11.5-14.5); Red Blood Count 5.54 M/uL (4.7-6.1); White Blood Count 4.76 K/uL (4.8-10.8)
[2020-05-02 05:31] LABS: Albumin Level 2.9 gm/dl (3.4-5.0); BUN Creatinine Ratio 27.3 (10-20); Calcium 7.9 mg/dl (8.5-10.1); Creatinine Clr Calc Pharmacy 57.4 ml/min; Est GFR (African American) 80.5; Est GFR (Non-African American) 69.4; Potassium 4.3 mmol/L (3.5-5.1)
[2020-05-02 05:35] LABS: Albumin Globulin Ratio 0.8 (0.9-2); Bilirubin,Total 0.7 mg/dl (0.2-1); Globulin 3.7 gm/dl (2.5-4.0); Total Protein 6.6 gm/dl (6.4-8.2)
[2020-05-02 06:12] LABS: INR 8.5 (0.9-1.1)
[2020-05-02] MEDS ORDERED: PHYTONADIONE 5 MG TAB PO STA (06:22)
[2020-05-02 06:26] LABS: Appearance Urine Clear (Clear); Bacteria Urine Automated Negative (Negative); Blood Urine Negative (Negative); Color Urine Dark Yellow; Epithelial Cell Urine Auto 20-30 /lpf (0-5); Glucose Urine UA Negative (Negative); Ketones Urine 2+ (Negative); Leukocyte Esterase Urine Negative (Negative); Nitrite Urine Negative (Negative); Protein Urine 2+ (Negative); Specific Gravity Urine 1.032 (1.000-1.030); Urobilinogen Urine Negative (Negative); pH Urine 5.5 (4.5-7.5)
[2020-05-02 06:50] LABS: Bilirubin Urine Negative (Negative); Ictotest Urine Negative (Negative)
[2020-05-02 07:21] LABS: Estimated Average Glucose 151 mg/dl; Hemoglobin A1C 6.9 % (4.5-5.6)
[2020-05-02] MEDS: DEXAMETHASONE SOD PHOSPHATE 6 MG in SYRINGE 0 ML IV SCH (08:19)
[2020-05-02] MEDS: METOPROLOL SUCC 50MG EXT REL TAB PO SCH ×2 (08:19→22:30)
[2020-05-02] MEDS: methIMAzole 5 MG TABLET PO SCH (08:19)
[2020-05-02] MEDS: DIGOXIN 0.125 MG TAB PO SCH (08:19)
[2020-05-02] MEDS: INSULIN ASPART 100 UNITS/ML 3 ML PEN SC SCH ×4 (08:34→21:41)
[2020-05-02] MEDS: dilTIAZem HCL 125 MG in DEXTROSE 5% 100 ML IV SCH (13:56)
--- NOTE | 2020-05-02 14:54 | Cardiology Consultation ---
Date of Consultation May 02, 2020 Assessment & Plan (1) Pneumonia due to COVID-19 virus: (2) COPD (chronic obstructive pulmonary disease): (3) Tachy-samir syndrome: (4) Atrial fibrillation with RVR: (5) Elevated INR: Given the fact that the patient is hypoxic in the setting of COVID-19 induced pneumonia would expect rapid ventricular response as a compensatory mechanism. Agree with continuing oral metoprolol and digoxin along with Cardizem drip for rate control. Goal INR of 2-3 History of Present Illness Reason for Consultation: Atrial fibrillation with rapid ventricular response Requesting Physician: Keisha Britton PA-C Attending Physician: Popeye Powell MD History of Present Illness In order to limit staff exposure to COVID-19 during the pandemic consultation was performed via chart review. 80-year-old gentleman who follows with Dr. Pradhan and Ashish Kern of our cardiology practice. He presented to [facility] on 05/01/2020 with complaints of cough and chest congestion. He was found to have multifocal pneumonia on chest x-ray, hypoxia on room air and COVID-19 positive. He was also found to be in atrial fibrillation with rapid ventricular response. He is maintained on his outpatient metoprolol and digoxin and a Cardizem drip was initiated for further rate control. INR was elevated and warfarin was held. Past medical history per most recent outpatient cardiology visit: 1. Paroxysmal atrial fibrillation with a rapid ventricular response, asymptomatic, compensated. 2. History of systolic dysfunction, tachycardia induced, resolved. 3. Tachy-Samir Syndrome status post pacemaker implantation 4. Hyperthyroidism, followed by [facility] Endocrinology though without recent evaluation. 5. COPD Allergies Allergy/AdvReac Type Severity Reaction Status Date / Time No Known Allergies Allergy Verified 05/01/20 13:40 Home Medications Medication Instructions Recorded Confirmed Type digoxin 125 mcg (0.125 mg) tablet 125 mcg PO QAM tab 02/20/19 05/01/20 History multivitamin 1 tab PO QAM 02/20/19 05/01/20 History methimazole 2.5 mg PO QAM 05/01/20 05/01/20 History metoprolol succinate 100 mg PO Q12H 05/01/20 05/01/20 History warfarin 2.5 mg PO MOWEFR 05/01/20 05/01/20 History warfarin 5 mg PO SUTUTHSA 05/01/20 05/01/20 History Patient History Medical History COPD (chronic obstructive pulmonary disease) Goiter Graves disease Hyperthyroidism Pacemaker PAF (paroxysmal atrial fibrillation) Pre-diabetes Tachy-samri syndrome (10/02/13) Surgical History History of back surgery 1970 History of ear surgery History of permanent cardiac pacemaker placement Hx of colonoscopy Family History Mother Atrial fibrillation Father Stroke Social History Smoking Status: Former smoker packs per day: 1; Years Smoked: 45; Second Hand Exposure: No; Do You Dip or Chew Tobacco: No; Tobacco Cessation Education Requested by Patient: No Hx Alcohol Use: No Hx Substance Use: No Preferred Language: Belarusian Communication Ability: Effective Beliefs That Will Affect Care: None marital status: Current Living Situation: Spouse current occupational status: retired Other Information That Helps Us Care for You: No other: 5 Children Feels Safe at Home: Yes Safety Concerns: Feels Safe At This Time Assistive Devices: Oxygen - Continuous Results & Data ([facility]) Vital Signs (Past 12 Hours) Vital Signs Temp Pulse Pulse Resp BP Pulse Ox 05/02/20 11:50 36.7 C 104 H 18 125/84 92 05/02/20 08:19 95 H 05/02/20 08:16 36.5 C 95 H 20 106/68 95 05/02/20 08:00 98 H 05/02/20 04:41 36.6 C 81 19 111/70 97 Laboratory Results Laboratory Results - last 24 hr 05/01/20 05/01/20 05/02/20 17:33 20:00 04:18 WBC 4.76 L RBC 5.54 Hgb 16.9 Hct 50.5 MCV 91.2 MCH 30.5 MCHC 33.5 RDW Std Deviation 46.0 RDW Coeff of Williams 13.7 Plt Count 186 MPV 10.8 H Immature Gran % (Auto) 0.2 Neut % (Auto) 77.2 Lymph % (Auto) 17.2 [place] % (Auto) 5.0 Eos % (Auto) 0.0 Baso % (Auto) 0.4 Neut # (Auto) 3.67 Lymph # (Auto) 0.82 L [place] # (Auto) 0.24 Eos # (Auto) 0.00 Baso # (Auto) 0.02 Immature Gran # (Auto) 0.01 PT INR Sodium Potassium Chloride Carbon Dioxide Anion Gap BUN Creatinine Est Cr Clr Drug Dosing Est GFR ( Amer) Est GFR (Non-Af Amer) BUN/Creatinine Ratio Glucose POC Glucose 182 H Estimat Average Glucose Hemoglobin A1c Calcium Total Bilirubin AST ALT Alkaline Phosphatase NT-Pro-B Natriuret Pep Total Protein Albumin Globulin Albumin/Globulin Ratio Procalcitonin 0.06 Urine Color Urine Appearance Urine pH Ur Specific [place] Urine Protein Urine Glucose (UA) Urine Ketones Urine Blood Urine Nitrite Urine Bilirubin Urine Urobilinogen Ur Leukocyte Esterase Urine WBC (Auto) Urine RBC (Auto) U Hyaline Cast (Auto) U Epithel Cells (Auto) Urine Bacteria (Auto) 05/02/20 05/02/20 05/02/20 04:18 04:18 04:18 WBC RBC Hgb Hct MCV MCH MCHC RDW Std Deviation RDW Coeff of Williams Plt Count MPV Immature Gran % (Auto) Neut % (Auto) Lymph % (Auto) [place] % (Auto) Eos % (Auto) Baso % (Auto) Neut # (Auto) Lymph # (Auto) [place] # (Auto) Eos # (Auto) Baso # (Auto) Immature Gran # (Auto) PT 80.0 H INR 8.5 H* Sodium 139 Potassium 4.3 Chloride 107 Carbon Dioxide 29 Anion Gap 3.0 BUN 28 H Creatinine 1.01 Est Cr Clr Drug Dosing 57.4 Est GFR ( Amer) 80.5 Est GFR (Non-Af Amer) 69.4 BUN/Creatinine Ratio 27.3 H Glucose 181 H POC Glucose Estimat Average Glucose 151 Hemoglobin A1c 6.9 H Calcium 7.9 L Total Bilirubin 0.7 AST 22 ALT 22 Alkaline Phosphatase 53 NT-Pro-B Natriuret Pep Total Protein 6.6 Albumin 2.9 L Globulin 3.7 Albumin/Globulin Ratio 0.8 L Procalcitonin Urine Color Urine Appearance Urine pH Ur Specific [place] Urine Protein Urine Glucose (UA) Urine Ketones Urine Blood Urine Nitrite Urine Bilirubin Urine Urobilinogen Ur Leukocyte Esterase Urine WBC (Auto) Urine RBC (Auto) U Hyaline Cast (Auto) U Epithel Cells (Auto) Urine Bacteria (Auto) 05/02/20 05/02/20 05/02/20 04:18 06:00 08:15 WBC RBC Hgb Hct MCV MCH MCHC RDW Std Deviation RDW Coeff of Williams Plt Count MPV Immature Gran % (Auto) Neut % (Auto) Lymph % (Auto) [place] % (Auto) Eos % (Auto) Baso % (Auto) Neut # (Auto) Lymph # (Auto) [place] # (Auto) Eos # (Auto) Baso # (Auto) Immature Gran # (Auto) PT INR Sodium Potassium Chloride Carbon Dioxide Anion Gap BUN Creatinine Est Cr Clr Drug Dosing Est GFR ( Amer) Est GFR (Non-Af Amer) BUN/Creatinine Ratio Glucose POC Glucose 148 H Estimat Average Glucose Hemoglobin A1c Calcium Total Bilirubin AST ALT Alkaline Phosphatase NT-Pro-B Natriuret Pep 3420 H Total Protein Albumin Globulin Albumin/Globulin Ratio Procalcitonin Urine Color Dark Yellow Urine Appearance Clear Urine pH 5.5 Ur Specific [place] 1.032 H Urine Protein 2+ H Urine Glucose (UA) Negative Urine Ketones 2+ H Urine Blood Negative Urine Nitrite Negative Urine Bilirubin Negative Urine Urobilinogen Negative Ur Leukocyte Esterase Negative Urine WBC (Auto) 1-5 Urine RBC (Auto) 5-10 H U Hyaline Cast (Auto) 10-30 H U Epithel Cells (Auto) 20-30 H Urine Bacteria (Auto) Negative 05/02/20 11:47 WBC RBC Hgb Hct MCV MCH MCHC RDW Std Deviation RDW Coeff of Williams Plt Count MPV Immature Gran % (Auto) Neut % (Auto) Lymph % (Auto) [place] % (Auto) Eos % (Auto) Baso % (Auto) Neut # (Auto) Lymph # (Auto) [place] # (Auto) Eos # (Auto) Baso # (Auto) Immature Gran # (Auto) PT INR Sodium Potassium Chloride Carbon Dioxide Anion Gap BUN Creatinine Est Cr Clr Drug Dosing Est GFR ( Amer) Est GFR (Non-Af Amer) BUN/Creatinine Ratio Glucose POC Glucose 156 H Estimat Average Glucose Hemoglobin A1c Calcium Total Bilirubin AST ALT Alkaline Phosphatase NT-Pro-B Natriuret Pep Total Protein Albumin Globulin Albumin/Globulin Ratio Procalcitonin Urine Color Urine Appearance Urine pH Ur Specific [place] Urine Protein Urine Glucose (UA) Urine Ketones Urine Blood Urine Nitrite Urine Bilirubin Urine Urobilinogen Ur Leukocyte Esterase Urine WBC (Auto) Urine RBC (Auto) U Hyaline Cast (Auto) U Epithel Cells (Auto) Urine Bacteria (Auto) Medications Administered Current Inpatient Medications Dextrose (Dextrose 50% 50 Ml Syringe) 25 - 50 ml IV UD PRN; Protocol PRN Reason: Hypoglycemia Protocol Stop: 05/31/20 19:04 Digoxin (Digoxin 0.125 Mg Tab) [facility] [place] [facility]: 06/01/20 08:59 Last Admin: 05/02/20 08:19 Dose: 0.125 mg Documented by: Glucagon (Glucagon For Inj 1 Mg Vial) 1 mg SQ UD PRN; Protocol PRN Reason: Hypoglycemia Protocol Stop: 05/31/20 19:04 Glucose (Glucose 10 Tabs/Tube) 4 - 8 tabs PO UD PRN; Protocol PRN Reason: Hypoglycemia Protocol Stop: 05/31/20 19:04 Glucose (Glucose 40% Gel 15 Gm Tube) 15 - 30 gm PO UD PRN; Protocol PRN Reason: Hypoglycemia Protocol Stop: 05/31/20 19:04 Diltiazem HCl 125 mg/ Dextrose 125 mls @ 5 mls/hr IV .Q24H [facility]; Protocol Stop: 05/31/20 13:44 Last Admin: 05/02/20 13:56 Dose: 5 mg/hr, 5 mls/hr Documented by: Dexamethasone Sodium Phosphate (6 mg/ Syringe) 1.5 mls @ 1 mls/min IV QD@08 [facility] Stop: 06/01/20 07:59 Last Admin: 05/02/20 08:19 Dose: 1 mls/min Documented by: Remdesivir 100 mg/ Sodium (Chloride) 250 mls @ 250 mls/hr IV Q24H [facility]; Protocol Stop: 05/05/20 20:59 Insulin Aspart (Insulin Aspart 100 Units/Ml 3 Ml Pen) 0 units SC ACHS [facility] Stop: 05/31/20 20:59 Last Admin: 05/02/20 11:59 Dose: 3 units Documented by: Methimazole (Methimazole 5 Mg Tablet) [facility] [place]: 06/01/20 08:59 Last Admin: 05/02/20 08:19 Dose: 2.5 mg Documented by: Metoprolol Succinate (Metoprolol Succ 50mg Ext Rel Tab) 100 mg PO Q12H [facility] Stop: 05/31/20 20:59 Last Admin: 05/02/20 08:19 Dose: 100 mg Documented by: Miscellaneous (Carbohydrates For Hypoglycemia ) 15 - 30 gm PO UD PRN PRN Reason: Hypoglycemia Protocol Stop: 05/31/20 19:04 Sodium Chloride (Sodium Chloride 0.9% 10ml Flush) 30 ml IV Q24H [facility] Stop: 05/05/20 21:01 Last Admin: 05/01/20 20:04 Dose: 30 ml Documented by:
[2020-05-02] MEDS: REMDESIVIR 100 MG in SODIUM CHLORIDE 0.9% 230 ML IV SCH (20:52)
[2020-05-02 21:30] LABS: INR 3.5 (0.9-1.1); Prothrombin Time 34.9 Seconds (9.0-12.0)
--- NOTE | 2020-05-02 21:41 | Hospitalist Progress Note ---
Date of Service May 02, 2020 Assessment & Plan (1) Pneumonia due to COVID-19 virus: Presented to ED with cough. O2 sats were in the 80's. Chest x-ray showed bilateral infiltrates consistent with pneumonia. SARS-CoV-2 PCR was positive. Lymphocytes 1170 > 820. Procalcitonin = 0.06. Therefore, antibiotic therapy not indicated. Receiving dexamethasone and remdesivir- today is day # 2. Did not receive convalescent plasma. (2) Hypoxia: As noted above. (3) Abnormal chest x-ray: Chest x-ray showed: "Asymmetric bilateral pulmonary airspace opacities. A multifocal pneumonia is favored over asymmetric pulmonary edema." Probable COVID pneumonia as discussed above. Pro-BNP elevated at 3420. No overt fluid overload / CHF. Follow symptoms, exam, chest films. (4) Atrial fibrillation with RVR: History of PAF. Presented to ED with AF + RVR. Started on diltiazem drip. Metoprolol and digoxin continued. Warfarin held due to elevated INR. Cardiology consulted. PAF with RVR probably secondary to COVID-19. Now back in SR. Wean and DC diltiazem. (5) Elevated INR: On warfarin for PAF. INR 6.6 at time of admission. No active bleeding. INR this morning 8.5- received 2.5 mg vitamin K. Recheck INR tonight. (6) Diabetes mellitus type 2, controlled: History of prediabetes. Random glucose at time of presentation 163. Hgb A1c = 6.9. Even though hyperglycemia is in setting of acute illness, Hgb A1c indicates progression to DM type 2. Receiving dexamethasone for COVID-19 pneumonia. Insulin coverage as needed. Will need outpatient follow-up for DM. (7) Graves disease: TSH = 3.15. Continue methimazole. (8) Do not resuscitate status: As noted. (9) DVT prophylaxis: On warfarin with supratherapeutic INR. (10) Discharge planning issues: Anticipated discharge to home. Internal Medicine follow-up with Dr. Charles. Admission and Anticipated Discharge Date Admission Date: May 01, 2020 Subjective Recheck for COVID-19, atrial fib, and other problems.. Patient seen in their room around 1550. Feels better. No fever. Persistent cough, but no SOB. No chest pain. Review of Systems: Constitutional- as noted above. Cardiac- as noted above. Pulmonary- no cough or SOB. GI- no nausea, vomiting, diarrhea, melena, hematochezia. - no urinary symptoms. Otherwise, as noted above. Physical Exam Constitutional: no acute distress Eyes: + anicteric sclerae Respiratory: no respiratory distress Auscultation: + rales (few) Cardiovascular: Rate/Rhythm: regular rate and regular rhythm Vessels: no JVD Extremities: no calf tenderness and no edema Gastrointestinal (Abdomen): normal bowel sounds, soft, nontender, no hepatosplenomegaly Musculoskeletal: Extremities: no cyanosis Skin: no rashes, warm and dry Psychiatric: Orientation: alert and oriented x 3 Results & Data Results & Data ([facility]) Vital Signs (Past 12 Hours) Vital Signs Temp Pulse Resp BP Pulse Ox 05/02/20 21:16 36.8 C 60 20 126/73 96 05/02/20 15:00 37.0 C 63 18 92 05/02/20 11:50 36.7 C 104 H 18 125/84 92 Laboratory Results Laboratory Results - last 24 hr 05/02/20 05/02/20 05/02/20 04:18 04:18 04:18 WBC 4.76 L RBC 5.54 Hgb 16.9 Hct 50.5 MCV 91.2 MCH 30.5 MCHC 33.5 RDW Std Deviation 46.0 RDW Coeff of Williams 13.7 Plt Count 186 MPV 10.8 H Immature Gran % (Auto) 0.2 Neut % (Auto) 77.2 Lymph % (Auto) 17.2 [place] % (Auto) 5.0 Eos % (Auto) 0.0 Baso % (Auto) 0.4 Neut # (Auto) 3.67 Lymph # (Auto) 0.82 L [place] # (Auto) 0.24 Eos # (Auto) 0.00 Baso # (Auto) 0.02 Immature Gran # (Auto) 0.01 PT 80.0 H INR 8.5 H* Sodium 139 Potassium 4.3 Chloride 107 Carbon Dioxide 29 Anion Gap 3.0 BUN 28 H Creatinine 1.01 Est Cr Clr Drug Dosing 57.4 Est GFR ( Amer) 80.5 Est GFR (Non-Af Amer) 69.4 BUN/Creatinine Ratio 27.3 H Glucose 181 H POC Glucose Estimat Average Glucose Hemoglobin A1c Calcium 7.9 L Total Bilirubin 0.7 AST 22 ALT 22 Alkaline Phosphatase 53 NT-Pro-B Natriuret Pep Total Protein 6.6 Albumin 2.9 L Globulin 3.7 Albumin/Globulin Ratio 0.8 L Urine Color Urine Appearance Urine pH Ur Specific [place] Urine Protein Urine Glucose (UA) Urine Ketones Urine Blood Urine Nitrite Urine Bilirubin Urine Urobilinogen Ur Leukocyte Esterase Urine WBC (Auto) Urine RBC (Auto) U Hyaline Cast (Auto) U Epithel Cells (Auto) Urine Bacteria (Auto) 05/02/20 05/02/20 05/02/20 04:18 04:18 06:00 WBC RBC Hgb Hct MCV MCH MCHC RDW Std Deviation RDW Coeff of Williams Plt Count MPV Immature Gran % (Auto) Neut % (Auto) Lymph % (Auto) [place] % (Auto) Eos % (Auto) Baso % (Auto) Neut # (Auto) Lymph # (Auto) [place] # (Auto) Eos # (Auto) Baso # (Auto) Immature Gran # (Auto) PT INR Sodium Potassium Chloride Carbon Dioxide Anion Gap BUN Creatinine Est Cr Clr Drug Dosing Est GFR ( Amer) Est GFR (Non-Af Amer) BUN/Creatinine Ratio Glucose POC Glucose Estimat Average Glucose 151 Hemoglobin A1c 6.9 H Calcium Total Bilirubin AST ALT Alkaline Phosphatase NT-Pro-B Natriuret Pep 3420 H Total Protein Albumin Globulin Albumin/Globulin Ratio Urine Color Dark Yellow Urine Appearance Clear Urine pH 5.5 Ur Specific [place] 1.032 H Urine Protein 2+ H Urine Glucose (UA) Negative Urine Ketones 2+ H Urine Blood Negative Urine Nitrite Negative Urine Bilirubin Negative Urine Urobilinogen Negative Ur Leukocyte Esterase Negative Urine WBC (Auto) 1-5 Urine RBC (Auto) 5-10 H U Hyaline Cast (Auto) 10-30 H U Epithel Cells (Auto) 20-30 H Urine Bacteria (Auto) Negative 05/02/20 05/02/20 05/02/20 08:15 11:47 16:04 WBC RBC Hgb Hct MCV MCH MCHC RDW Std Deviation RDW Coeff of Williams Plt Count MPV Immature Gran % (Auto) Neut % (Auto) Lymph % (Auto) [place] % (Auto) Eos % (Auto) Baso % (Auto) Neut # (Auto) Lymph # (Auto) [place] # (Auto) Eos # (Auto) Baso # (Auto) Immature Gran # (Auto) PT INR Sodium Potassium Chloride Carbon Dioxide Anion Gap BUN Creatinine Est Cr Clr Drug Dosing Est GFR ( Amer) Est GFR (Non-Af Amer) BUN/Creatinine Ratio Glucose POC Glucose 148 H 156 H 186 H Estimat Average Glucose Hemoglobin A1c Calcium Total Bilirubin AST ALT Alkaline Phosphatase NT-Pro-B Natriuret Pep Total Protein Albumin Globulin Albumin/Globulin Ratio Urine Color Urine Appearance Urine pH Ur Specific [place] Urine Protein Urine Glucose (UA) Urine Ketones Urine Blood Urine Nitrite Urine Bilirubin Urine Urobilinogen Ur Leukocyte Esterase Urine WBC (Auto) Urine RBC (Auto) U Hyaline Cast (Auto) U Epithel Cells (Auto) Urine Bacteria (Auto) 05/02/20 05/02/20 20:39 21:05 WBC RBC Hgb Hct MCV MCH MCHC RDW Std Deviation RDW Coeff of Williams Plt Count MPV Immature Gran % (Auto) Neut % (Auto) Lymph % (Auto) [place] % (Auto) Eos % (Auto) Baso % (Auto) Neut # (Auto) Lymph # (Auto) [place] # (Auto) Eos # (Auto) Baso # (Auto) Immature Gran # (Auto) PT 34.9 H INR 3.5 H Sodium Potassium Chloride Carbon Dioxide Anion Gap BUN Creatinine Est Cr Clr Drug Dosing Est GFR ( Amer) Est GFR (Non-Af Amer) BUN/Creatinine Ratio Glucose POC Glucose 171 H Estimat Average Glucose Hemoglobin A1c Calcium Total Bilirubin AST ALT Alkaline Phosphatase NT-Pro-B Natriuret Pep Total Protein Albumin Globulin Albumin/Globulin Ratio Urine Color Urine Appearance Urine pH Ur Specific [place] Urine Protein Urine Glucose (UA) Urine Ketones Urine Blood Urine Nitrite Urine Bilirubin Urine Urobilinogen Ur Leukocyte Esterase Urine WBC (Auto) Urine RBC (Auto) U Hyaline Cast (Auto) U Epithel Cells (Auto) Urine Bacteria (Auto)
[2020-05-02] MEDS: SODIUM CHLORIDE 0.9% 10ML FLUSH IV SCH (22:28)
[2020-05-03 08:02] LABS: Basophils # (auto) 0.02 K/uL (0-0.2); Basophils % (auto) 0.2 %; Hematocrit (blood only) 45.7 % (42-52); Hemoglobin 15.5 g/dL (14.0-18.0); Immature Granulocytes # (auto) 0.01 K/uL (0.00-0.02); Immature Granulocytes % (auto) 0.1 %; Lymphocytes # (auto) 0.92 K/uL (1.2-3.4); Lymphocytes % (auto) 10.5 %; Mean Corpuscular Hemoglobin 30.5 pg (25-34); Mean Corpuscular Hgb Conc 33.9 g/dL (32-36); Mean Platelet Volume 10.3 fL (7.4-10.4); Monocytes # (auto) 0.47 K/uL (0.11-0.59); Monocytes % (auto) 5.4 %; Neutrophils # (auto) 7.32 K/uL (1.4-6.5); Neutrophils % (auto) 83.8 %; Platelet Count 226 K/uL (130-400); RDW Coefficient of Variation 13.5 % (11.5-14.5); RDW Standard Deviation 44.9 fL (36.4-46.3); Red Blood Count 5.08 M/uL (4.7-6.1); White Blood Count 8.74 K/uL (4.8-10.8)
[2020-05-03 08:11] LABS: INR 2.1 (0.9-1.1); Prothrombin Time 21.7 Seconds (9.0-12.0)
[2020-05-03 08:22] LABS: Albumin Level 3.1 gm/dl (3.4-5.0); BUN Creatinine Ratio 41.9 (10-20); Calcium 8.3 mg/dl (8.5-10.1); Creatinine Clr Calc Pharmacy 65.8 ml/min; Est GFR (African American) 93.4; Est GFR (Non-African American) 80.6; Potassium 4.2 mmol/L (3.5-5.1)
[2020-05-03 08:23] LABS: Albumin Globulin Ratio 0.9 (0.9-2); Globulin 3.5 gm/dl (2.5-4.0); Total Protein 6.6 gm/dl (6.4-8.2)
[2020-05-03] MEDS: DEXAMETHASONE SOD PHOSPHATE 6 MG in SYRINGE 0 ML IV SCH (08:23)
[2020-05-03] MEDS: DIGOXIN 0.125 MG TAB PO SCH (08:23)
[2020-05-03] MEDS: METOPROLOL SUCC 50MG EXT REL TAB PO SCH ×2 (08:24→20:29)
[2020-05-03] MEDS: methIMAzole 5 MG TABLET PO SCH (08:25)
[2020-05-03] MEDS: INSULIN ASPART 100 UNITS/ML 3 ML PEN SC SCH ×4 (08:33→21:41)
[2020-05-03] MEDS: dilTIAZem HCL 125 MG in DEXTROSE 5% 100 ML IV SCH (13:28)
[2020-05-03] MEDS: REMDESIVIR 100 MG in SODIUM CHLORIDE 0.9% 230 ML IV SCH (20:29)
--- NOTE | 2020-05-03 21:38 | Hospitalist Progress Note ---
Date of Service May 03, 2020 Assessment & Plan (1) Pneumonia due to COVID-19 virus: Presented to ED with cough. O2 sats were in the 80's. Chest x-ray showed bilateral infiltrates consistent with pneumonia. SARS-CoV-2 PCR was positive. Lymphocytes 1170 > 820. Procalcitonin = 0.06. Therefore, antibiotic therapy not indicated. Receiving dexamethasone and remdesivir- today is day # 3. LFT's OK. Did not receive convalescent plasma. Still on O2 by [place]. (2) Hypoxia: As noted above. (3) Abnormal chest x-ray: Chest x-ray showed: "Asymmetric bilateral pulmonary airspace opacities. A multifocal pneumonia is favored over asymmetric pulmonary edema." Probable COVID pneumonia as discussed above. Pro-BNP elevated at 3420. No overt fluid overload / CHF. Follow symptoms, exam, chest films. (4) Atrial fibrillation with RVR: History of PAF. Presented to ED with AF + RVR. Started on diltiazem drip. Metoprolol and digoxin continued. Warfarin held due to elevated INR. Cardiology consulted. PAF with RVR probably secondary to COVID-19. Now back in SR. Wean and DC diltiazem. (5) Elevated INR: On warfarin for PAF. INR 6.6 at time of admission. No active bleeding. INR as high as 8.5- received 2.5 mg vitamin K. INR this morning = 2.1. (6) Diabetes mellitus type 2, controlled: History of prediabetes. Random glucose at time of presentation 163. Hgb A1c = 6.9. Even though hyperglycemia is in setting of acute illness, Hgb A1c indicates progression to DM type 2. Receiving dexamethasone for COVID-19 pneumonia. FBS this morning = 145. Insulin coverage as needed. Will need outpatient follow-up for DM. (7) Graves disease: TSH = 3.15. Continue methimazole. (8) Do not resuscitate status: As noted. (9) DVT prophylaxis: On warfarin with supratherapeutic INR. (10) Discharge planning issues: Anticipated discharge to home. Internal Medicine follow-up with Dr. Charles. Admission and Anticipated Discharge Date Admission Date: May 01, 2020 Subjective Recheck for COVID-19, atrial fib, and other problems.. Patient seen in their room around 1510. Feels better. No fever. Persistent cough, but no SOB. Still on O2 by [place]. No chest pain. Telemetry data reviewed: paced rhythm in 60's. Review of Systems: Constitutional- as noted above. Cardiac- as noted above. Pulmonary- as noted above GI- no nausea, vomiting, diarrhea, melena, hematochezia. - no urinary symptoms. Otherwise, as noted above. Physical Exam Constitutional: no acute distress Eyes: + anicteric sclerae Respiratory: no respiratory distress Auscultation: lungs clear to aus cultation bilaterally Cardiovascular: Rate/Rhythm: regular rate and regular rhythm Vessels: no JVD Extremities: no calf tenderness and no edema Gastrointestinal (Abdomen): normal bowel sounds, soft, nontender, no h epatosplenomegaly Musculoskeletal: Extremities: no cyanosis Skin: no rashes, warm and dry Psychiatric: Orientation: alert and oriented x 3 Results & Data Results & Data ([facility]) Vital Signs (Past 12 Hours) Vital Signs Temp Pulse Resp BP Pulse Ox 05/03/20 19:49 36.7 C 65 18 142/80 H 97 05/03/20 15:58 36.8 C 60 16 120/62 94 05/03/20 11:54 36.5 C 60 18 138/76 95 Laboratory Results Laboratory Results - last 24 hr 05/03/20 05/03/20 05/03/20 07:31 07:31 07:31 WBC 8.74 RBC 5.08 Hgb 15.5 Hct 45.7 MCV 90.0 MCH 30.5 MCHC 33.9 RDW Std Deviation 44.9 RDW Coeff of Williams 13.5 Plt Count 226 MPV 10.3 Immature Gran % (Auto) 0.1 Neut % (Auto) 83.8 Lymph % (Auto) 10.5 [place] % (Auto) 5.4 Eos % (Auto) 0.0 Baso % (Auto) 0.2 Neut # (Auto) 7.32 H Lymph # (Auto) 0.92 L [place] # (Auto) 0.47 Eos # (Auto) 0.00 Baso # (Auto) 0.02 Immature Gran # (Auto) 0.01 PT 21.7 H INR 2.1 H Sodium 141 Potassium 4.2 Chloride 109 H Carbon Dioxide 29 Anion Gap 3.0 BUN 37 H Creatinine 0.88 Est Cr Clr Drug Dosing 65.8 Est GFR ( Amer) 93.4 Est GFR (Non-Af Amer) 80.6 BUN/Creatinine Ratio 41.9 H Glucose 156 H POC Glucose Calcium 8.3 L Total Bilirubin 1.0 AST 27 ALT 25 Alkaline Phosphatase 49 Total Protein 6.6 Albumin 3.1 L Globulin 3.5 Albumin/Globulin Ratio 0.9 05/03/20 05/03/20 05/03/20 07:33 11:54 16:24 WBC RBC Hgb Hct MCV MCH MCHC RDW Std Deviation RDW Coeff of Williams Plt Count MPV Immature Gran % (Auto) Neut % (Auto) Lymph % (Auto) [place] % (Auto) Eos % (Auto) Baso % (Auto) Neut # (Auto) Lymph # (Auto) [place] # (Auto) Eos # (Auto) Baso # (Auto) Immature Gran # (Auto) PT INR Sodium Potassium Chloride Carbon Dioxide Anion Gap BUN Creatinine Est Cr Clr Drug Dosing Est GFR ( Amer) Est GFR (Non-Af Amer) BUN/Creatinine Ratio Glucose POC Glucose 145 H 140 H 227 H Calcium Total Bilirubin AST ALT Alkaline Phosphatase Total Protein Albumin Globulin Albumin/Globulin Ratio 05/03/20 05/03/20 20:43 20:44 WBC RBC Hgb Hct MCV MCH MCHC RDW Std Deviation RDW Coeff of Williams Plt Count MPV Immature Gran % (Auto) Neut % (Auto) Lymph % (Auto) [place] % (Auto) Eos % (Auto) Baso % (Auto) Neut # (Auto) Lymph # (Auto) [place] # (Auto) Eos # (Auto) Baso # (Auto) Immature Gran # (Auto) PT INR Sodium Potassium Chloride Carbon Dioxide Anion Gap BUN Creatinine Est Cr Clr Drug Dosing Est GFR ( Amer) Est GFR (Non-Af Amer) BUN/Creatinine Ratio Glucose POC Glucose 55 L* 208 H Calcium Total Bilirubin AST ALT Alkaline Phosphatase Total Protein Albumin Globulin Albumin/Globulin Ratio
[2020-05-03] MEDS: SODIUM CHLORIDE 0.9% 10ML FLUSH IV SCH (21:44)
[2020-05-04 08:18] LABS: Basophils # (auto) 0.01 K/uL (0-0.2); Basophils % (auto) 0.1 %; Hematocrit (blood only) 43.6 % (42-52); Hemoglobin 14.8 g/dL (14.0-18.0); Immature Granulocytes # (auto) 0.02 K/uL (0.00-0.02); Immature Granulocytes % (auto) 0.3 %; Lymphocytes # (auto) 0.77 K/uL (1.2-3.4); Lymphocytes % (auto) 9.8 %; Mean Corpuscular Hemoglobin 30.6 pg (25-34); Mean Corpuscular Hgb Conc 33.9 g/dL (32-36); Mean Corpuscular Volume 90.3 fL (80-100); Mean Platelet Volume 10.3 fL (7.4-10.4); Neutrophils # (auto) 6.32 K/uL (1.4-6.5); Neutrophils % (auto) 80.8 %; Platelet Count 190 K/uL (130-400); RDW Coefficient of Variation 13.5 % (11.5-14.5); RDW Standard Deviation 44.4 fL (36.4-46.3); Red Blood Count 4.83 M/uL (4.7-6.1); White Blood Count 7.82 K/uL (4.8-10.8)
[2020-05-04 08:37] LABS: INR 1.7 (0.9-1.1); Prothrombin Time 17.5 Seconds (9.0-12.0)
[2020-05-04] MEDS ORDERED: WARFARIN SOD 5 MG TAB PO ONE (08:41)
[2020-05-04 08:47] LABS: BUN Creatinine Ratio 38.1 (10-20); Calcium 7.9 mg/dl (8.5-10.1); Creatinine Clr Calc Pharmacy 74.3 ml/min; Est GFR (African American) 98.1; Est GFR (Non-African American) 84.7; Potassium 3.9 mmol/L (3.5-5.1)
[2020-05-04 08:50] LABS: Albumin Globulin Ratio 0.9 (0.9-2); Globulin 3.2 gm/dl (2.5-4.0); Total Protein 6.2 gm/dl (6.4-8.2)
[2020-05-04] MEDS: DEXAMETHASONE SOD PHOSPHATE 6 MG in SYRINGE 0 ML IV SCH (08:51)
[2020-05-04] MEDS: INSULIN ASPART 100 UNITS/ML 3 ML PEN SC SCH ×4 (08:52→21:49)
[2020-05-04] MEDS: METOPROLOL SUCC 50MG EXT REL TAB PO SCH ×2 (08:53→20:04)
--- NOTE | 2020-05-04 08:53 | XRay Report ---
SINGLE VIEW CHEST CLINICAL HISTORY: Covid. FINDINGS: An AP, portable, upright chest radiograph is compared to study dated 05/01/2020. A 2-lead ca rdiac pacemaker is unchanged in position and partially obscures the left apex. The heart is mildly en larged noting atherosclerotic calcification of the thoracic aorta. Hazy airspace consolidation is see n throughout the left lung. Milder opacities are present in the right mid to lower lung. No large ple ural effusion or pneumothorax is seen. The skeletal structures are osteopenic. The bony thorax is etienne ssly intact. IMPRESSION: 1. Cardiomegaly and cardiac pacemaker. There is no radiographic evidence of congestive failure. 2. Left greater than right airspace opacities are similar to previous and favor an infectious/inflamm atory pneumonitis. Clinical correlation will be required. ACT 112: Negative or not required by law. Electronically signed by: Juarez Monreal M.D. 05/04/2020 8:52 AM
[2020-05-04] MEDS: DIGOXIN 0.125 MG TAB PO SCH (08:54)
[2020-05-04] MEDS: methIMAzole 5 MG TABLET PO SCH (08:54)
[2020-05-04] MEDS: ENOXAPARIN INJ 40 MG/0.4 ML SYR SQ SCH (09:31)
[2020-05-04] MEDS ORDERED: ACETAMINOPHEN 500 MG TAB PO PRN (12:14)
[2020-05-04] MEDS: dilTIAZem HCL 125 MG in DEXTROSE 5% 100 ML IV SCH (14:26)
[2020-05-04] MEDS: REMDESIVIR 100 MG in SODIUM CHLORIDE 0.9% 230 ML IV SCH (20:03)
[2020-05-04] MEDS: SODIUM CHLORIDE 0.9% 10ML FLUSH IV SCH (21:32)
--- NOTE | 2020-05-04 23:08 | Hospitalist Progress Note ---
Date of Service May 04, 2020 Assessment & Plan (1) Pneumonia due to COVID-19 virus: Presented to ED with cough. O2 sats were in the 80's. Chest x-ray showed bilateral infiltrates consistent with pneumonia. SARS-CoV-2 PCR was positive. Lymphocytes 1170 > 820. Procalcitonin = 0.06. Therefore, antibiotic therapy not indicated. Receiving dexamethasone and remdesivir- today is day # 4. LFT's OK. Did not receive convalescent plasma. Still on O2 by MI; wean as tolerated. (2) Hypoxia: As noted above. (3) Abnormal chest x-ray: Chest x-ray showed: "Asymmetric bilateral pulmonary airspace opacities. A multifocal pneumonia is favored over asymmetric pulmonary edema." Probable COVID pneumonia as discussed above. Pro-BNP elevated at 3420. No overt fluid overload / CHF by exam. F/U chest x-ray today = bilat opacities consistent with pneumonia, no overt pulmonary edema. Follow symptoms, exam, chest films. (4) Atrial fibrillation with RVR: History of PAF. Presented to ED with AF + RVR. Started on diltiazem drip. Metoprolol and digoxin continued. Warfarin held due to elevated INR. Cardiology consulted. PAF with RVR probably secondary to COVID-19. Converted to NSR. Diltiazem weaned and discontinued. (5) Elevated INR: On warfarin for PAF. INR 6.6 at time of admission. No active bleeding. INR as high as 8.5- received 2.5 mg vitamin K. INR this morning = 1.7. (6) Diabetes mellitus type 2, controlled: History of prediabetes. Random glucose at time of presentation 163. Hgb A1c = 6.9. Even though hyperglycemia is in setting of acute illness, Hgb A1c indicates progression to DM type 2. Receiving dexamethasone for COVID-19 pneumonia. FBS this morning = 131. Insulin coverage as needed. Will need outpatient follow-up for DM. (7) Graves disease: TSH = 3.15. Continue methimazole. (8) Do not resuscitate status: As noted. (9) DVT prophylaxis: On warfarin with supratherapeutic INR at time of admission. INR today = 1.7. SQ enoxaparin until INR therapeutic. (10) Discharge planning issues: Anticipated discharge to home. Internal Medicine follow-up with Dr. Charles. Admission and Anticipated Discharge Date Admission Date: May 01, 2020 Subjective Recheck for COVID-19, atrial fib, and other problems.. Patient seen in their room around 1550. Feels better. No fever. Cough improved; no SOB. Still on supplemental O2. No chest pain or palpitations. Review of Systems: Constitutional- as noted above. Cardiac- as noted above. Pulmonary- as noted above GI- no nausea, vomiting, diarrhea, melena, hematochezia. - no urinary symptoms. Otherwise, as noted above. Physical Exam Constitutional: no acute distress Eyes: + anicteric sclerae Respiratory: no respiratory distress Auscultation: lungs clear to auscultation bilaterally Cardiovascular: Rate/Rhythm: regular rate and regular rhythm Vessels: no JVD Extremities: no calf tenderness and no edema Gastrointestinal (Abdomen): normal bowel sounds, soft, nontender, no hepatosplenomegaly Musculoskeletal: Extremities: no cyanosis Skin: no rashes, warm and dry Psychiatric: Orientation: alert and oriented x 3 Results & Data Results & Data ([facility]) Vital Signs (Past 12 Hours) Vital Signs Temp Pulse Pulse Pulse Resp BP Pulse Ox 05/04/20 20:01 36.5 C 69 20 146/104 H 95 05/04/20 16:00 68 05/04/20 15:40 36.5 C 60 18 125/70 95 05/04/20 11:33 36.8 C 60 18 136/71 97 Laboratory Results Laboratory Results - last 24 hr 05/04/20 05/04/20 05/04/20 07:37 07:38 07:38 WBC 7.82 RBC 4.83 Hgb 14.8 Hct 43.6 MCV 90.3 MCH 30.6 MCHC 33.9 RDW Std Deviation 44.4 RDW Coeff of Williams 13.5 Plt Count 190 MPV 10.3 Immature Gran % (Auto) 0.3 Neut % (Auto) 80.8 Lymph % (Auto) 9.8 Forrest % (Auto) 9.0 Eos % (Auto) 0.0 Baso % (Auto) 0.1 Neut # (Auto) 6.32 Lymph # (Auto) 0.77 L Forrest # (Auto) 0.70 H Eos # (Auto) 0.00 Baso # (Auto) 0.01 Immature Gran # (Auto) 0.02 PT 17.5 H INR 1.7 H Sodium 142 Potassium 3.9 Chloride 110 H Carbon Dioxide 29 Anion Gap 3.0 BUN 30 H Creatinine 0.78 Est Cr Clr Drug Dosing 74.3 Est GFR ( Amer) 98.1 Est GFR (Non-Af Amer) 84.7 BUN/Creatinine Ratio 38.1 H Glucose 133 H POC Glucose Calcium 7.9 L Total Bilirubin 1.0 AST 24 ALT 25 Alkaline Phosphatase 51 Total Protein 6.2 L Albumin 3.0 L Globulin 3.2 Albumin/Globulin Ratio 0.9 05/04/20 05/04/20 05/04/20 07:48 11:18 17:05 WBC RBC Hgb Hct MCV MCH MCHC RDW Std Deviation RDW Coeff of Williams Plt Count MPV Immature Gran % (Auto) Neut % (Auto) Lymph % (Auto) Forrest % (Auto) Eos % (Auto) Baso % (Auto) Neut # (Auto) Lymph # (Auto) Forrest # (Auto) Eos # (Auto) Baso # (Auto) Immature Gran # (Auto) PT INR Sodium Potassium Chloride Carbon Dioxide Anion Gap BUN Creatinine Est Cr Clr Drug Dosing Est GFR ( Amer) Est GFR (Non-Af Amer) BUN/Creatinine Ratio Glucose POC Glucose 131 H 191 H 168 H Calcium Total Bilirubin AST ALT Alkaline Phosphatase Total Protein Albumin Globulin Albumin/Globulin Ratio 05/04/20 20:55 WBC RBC Hgb Hct MCV MCH MCHC RDW Std Deviation RDW Coeff of Williams Plt Count MPV Immature Gran % (Auto) Neut % (Auto) Lymph % (Auto) Forrest % (Auto) Eos % (Auto) Baso % (Auto) Neut # (Auto) Lymph # (Auto) Forrest # (Auto) Eos # (Auto) Baso # (Auto) Immature Gran # (Auto) PT INR Sodium Potassium Chloride Carbon Dioxide Anion Gap BUN Creatinine Est Cr Clr Drug Dosing Est GFR ( Amer) Est GFR (Non-Af Amer) BUN/Creatinine Ratio Glucose POC Glucose 221 H Calcium Total Bilirubin AST ALT Alkaline Phosphatase Total Protein Albumin Globulin Albumin/Globulin Ratio
[2020-05-05 08:27] LABS: Basophils # (auto) 0.01 K/uL (0-0.2); Basophils % (auto) 0.1 %; Hematocrit (blood only) 42.8 % (42-52); Hemoglobin 14.6 g/dL (14.0-18.0); Immature Granulocytes # (auto) 0.01 K/uL (0.00-0.02); Immature Granulocytes % (auto) 0.1 %; Lymphocytes # (auto) 1.02 K/uL (1.2-3.4); Lymphocytes % (auto) 13.8 %; Mean Corpuscular Hemoglobin 30.4 pg (25-34); Mean Corpuscular Hgb Conc 34.1 g/dL (32-36); Mean Corpuscular Volume 89.2 fL (80-100); Mean Platelet Volume 10.4 fL (7.4-10.4); Monocytes # (auto) 0.74 K/uL (0.11-0.59); Neutrophils # (auto) 5.59 K/uL (1.4-6.5); Platelet Count 196 K/uL (130-400); RDW Coefficient of Variation 13.3 % (11.5-14.5); RDW Standard Deviation 43.9 fL (36.4-46.3); White Blood Count 7.37 K/uL (4.8-10.8)
[2020-05-05 08:36] LABS: INR 2.2 (0.9-1.1); Prothrombin Time 21.8 Seconds (9.0-12.0)
[2020-05-05] MEDS: INSULIN ASPART 100 UNITS/ML 3 ML PEN SC SCH ×3 (08:45→17:39)
[2020-05-05] MEDS: DEXAMETHASONE SOD PHOSPHATE 6 MG in SYRINGE 0 ML IV SCH (08:46)
[2020-05-05] MEDS: DIGOXIN 0.125 MG TAB PO SCH (08:46)
[2020-05-05] MEDS: METOPROLOL SUCC 50MG EXT REL TAB PO SCH (08:46)
[2020-05-05] MEDS: methIMAzole 5 MG TABLET PO SCH (08:46)
[2020-05-05] MEDS: ENOXAPARIN INJ 40 MG/0.4 ML SYR SQ SCH (08:47)
[2020-05-05 08:59] LABS: Albumin Level 2.9 gm/dl (3.4-5.0); BUN Creatinine Ratio 33.7 (10-20); Bilirubin Direct 0.3 mg/dl (0-0.2); Creatinine Clr Calc Pharmacy 80.5 ml/min; Est GFR (African American) 101.4; Est GFR (Non-African American) 87.5; Potassium 3.8 mmol/L (3.5-5.1)
[2020-05-05 09:02] LABS: Albumin Globulin Ratio 0.8 (0.9-2); Globulin 3.5 gm/dl (2.5-4.0); Total Protein 6.4 gm/dl (6.4-8.2)
[2020-05-05] MEDS: dilTIAZem HCL 125 MG in DEXTROSE 5% 100 ML IV SCH (12:54)
--- NOTE | 2020-05-05 15:17 | Hospitalist Progress Note ---
Date of Service May 05, 2020 Assessment & Plan (1) Pneumonia due to COVID-19 virus: Presented to ED with cough. O2 sats were in the 80's. Chest x-ray showed bilateral infiltrates consistent with pneumonia. SARS-CoV-2 PCR was positive. Lymphocytes 1170 > 820. Procalcitonin = 0.06. Therefore, antibiotic therapy not indicated. Received dexamethasone and remdesivir x 5 days. LFT's OK. Did not receive convalescent plasma. Weaned off supplemental O2. Received COVID instructions / precautions for home. (2) Hypoxia: As noted above. (3) Abnormal chest x-ray: Chest x-ray showed: "Asymmetric bilateral pulmonary airspace opacities. A multifocal pneumonia is favored over asymmetric pulmonary edema." Probable COVID pneumonia as discussed above. Pro-BNP elevated at 3420. No overt fluid overload / CHF by exam. F/U chest x-ray today = bilat opacities consistent with pneumonia, no overt pulmonary edema. (4) Atrial fibrillation with RVR: History of PAF. Presented to ED with AF + RVR. Started on diltiazem drip. Metoprolol and digoxin continued. Warfarin held due to elevated INR. Cardiology consulted. PAF with RVR probably secondary to COVID-19. Converted to NSR. Diltiazem weaned and discontinued. Discharge on usual regimen. (5) Elevated INR: On warfarin for PAF. INR 6.6 at time of admission. No active bleeding. INR as high as 8.5- received 2.5 mg vitamin K x 1. INR as low as 1.7. Received warfarin 5 mg on 05/04. INR today = 2.2. Discharge on reduced dose of 2.5 mg daily. Ongoing management per [facility]. (6) Diabetes mellitus type 2, controlled: History of prediabetes. Random glucose at time of presentation 163. Hgb A1c = 6.9. Even though hyperglycemia is in setting of acute illness, Hgb A1c indicates progression to DM type 2. Receiving dexamethasone for COVID-19 pneumonia. Received insulin coverage as necessary. FBS this morning = 102. Will need outpatient follow-up for DM. (7) Graves disease: TSH = 3.15. Continue methimazole. (8) Do not resuscitate status: As noted. (9) DVT prophylaxis: On warfarin with supratherapeutic INR at time of admission. INR fell as low as 1.7; received SQ enoxaparin. INR today = 2.3. (10) Discharge planning issues: Discharge to home. Internal Medicine follow-up with Dr. Charles. Admission and Anticipated Discharge Date Admission Date: May 01, 2020 Subjective Recheck for COVID-19, atrial fib, and other problems.. Patient seen in their room around 1450. Feels better. No fever. Cough improved; no SOB. Weaned off supplemental O2. No chest pain or palpitations. Review of Systems: Constitutional- as noted above. Cardiac- as noted above. Pulmonary- as noted above GI- no nausea, vomiting, diarrhea, melena, hematochezia. - no urinary symptoms. Otherwise, as noted above. Physical Exam Constitutional: no acute distress Eyes: + anicteric sclerae Respiratory: no respiratory distress Auscultation: lungs clear to auscultation bilaterally Cardiovascular: Rate/Rhythm: regular rate and regular rhythm Vessels: no JVD Extremities: no calf tenderness and no edema Gastrointestinal (Abdomen): normal bowel sounds, soft, nontender, no hepatosplenomegaly Musculoskeletal: Extremities: no cyanosis Skin: no rashes, warm and dry Psychiatric: Orientation: alert and oriented x 3 Results & Data Results & Data ([facility]) Vital Signs (Past 12 Hours) Vital Signs Temp Pulse Pulse Pulse Pulse Pulse Resp 05/05/20 12:10 68 63 60 05/05/20 11:27 36.7 C 60 16 05/05/20 08:46 61 05/05/20 08:00 61 05/05/20 07:53 36.5 C 61 16 Resp Resp Resp BP Pulse Ox Pulse Ox Pulse Ox 05/05/20 12:10 18 16 16 91 93 05/05/20 11:27 121/74 94 05/05/20 08:46 05/05/20 08:00 05/05/20 07:53 123/70 91 Pulse Ox 05/05/20 12:10 93 05/05/20 11:27 05/05/20 08:46 05/05/20 08:00 05/05/20 07:53 Laboratory Results 05/05/20 07:32 05/05/20 07:32
[2020-05-05] MEDS ORDERED: REMDESIVIR 100 MG in SODIUM CHLORIDE 0.9% 230 ML IV ONE (17:15)
[2020-05-05] MEDS ORDERED: SODIUM CHLORIDE 0.9% 10ML FLUSH IV SCH (17:15)
--- NOTE | 2020-05-06 07:52 | Discharge Summary ---
Date of Service Date of Admission: 05/01/20 Date of Discharge: 05/05/20 Admission HPI Per Admitting Provider This is a 80 y/o male with a PMH of PAF on chronic anticoagulation, tachy-chaz syndrome s/p PPM placement, COPD, Graves disease, and prediabetes who presented to the ED today with ongoing productive cough and chest congestion. He states that his was concerned about his lack of improvement and wanted him evaluated so he came to the ED. In the ED, he was found to be in atrial fibrillation with RVR and diagnosed with COVID-19. CXR was concerning for multifocal pneumonia and pt found to have hypoxia with pulseox on room air in the upper 80s. He was started on 2L of O2 with improvement. Given diltiazem 10 mg IV x 1 then started on gtt for rate control. Pt currently reports feeling much better than on arrival. His symptoms started about a week and a half ago with chest congestion then a cough productive of green to brown sputum. Denies hemoptysis. He has also noticed lightheadedness with ambulation although denies dyspnea on exertion. No shortness of breath at rest or wheezing. He denies chest pain but has noted chest tightness. Denies palpitations or racing heart even when he was in afib with RVR. He has noted a loss of appetite with abnormal taste and small at home although this now seems to be improving. Two days ago he noted that his urine was "strong" and very dark in color but denies hematuria. He reports drinking adequate fluids - water, danish elfego, red marlyn tea. Denies N/V/D. He has been fatigued but denies myalgias, back pain or neck pain. No known contact with someone who is COVID positive. No sick contacts at home. Principal Diagnosis COVID-19 pneumonia OTHER ACUTE / SECONDARY DIAGNOSES: paroxysmal atrial fibrillation with rapid ventricular response supratherapeutic INR due to warfarin therapy DM type 2 (previously prediabetes) Discharge Data Allergies Allergy/AdvReac Type Severity Reaction Status Date / Time No Known Allergies Allergy Verified 05/01/20 13:40 Consultations 05/01/20 16:09 ED Decision to Admit Stat 05/01/20 19:05 Consult Cardiology Routine Diabetes Follow up Diabetes Follow-up Needed for Newly Diagnosed Diabetes Hospital Course (1) Pneumonia due to COVID-19 virus: Presented to ED with cough. O2 sats were in the 80's. Chest x-ray showed bilateral infiltrates consistent with pneumonia. SARS-CoV-2 PCR was positive. Lymphocytes 1170 > 820. Procalcitonin = 0.06. Therefore, antibiotic therapy not indicated. Received dexamethasone and remdesivir x 5 days. LFT's OK. Did not receive convalescent plasma. Weaned off supplemental O2. Received COVID instructions / precautions for home. (2) Hypoxia: As noted above. (3) Abnormal chest x-ray: Chest x-ray showed: "Asymmetric bilateral pulmonary airspace opacities. A multifocal pneumonia is favored over asymmetric pulmonary edema." Probable COVID pneumonia as discussed above. Pro-BNP elevated at 3420. No overt fluid overload / CHF by exam. F/U chest x-ray = bilat opacities consistent with pneumonia, no overt pulmonary edema. (4) Atrial fibrillation with RVR: History of PAF. Presented to ED with AF + RVR. Started on diltiazem drip. Metoprolol and digoxin continued. Warfarin held due to elevated INR. Cardiology consulted. PAF with RVR probably secondary to COVID-19. Converted to NSR. Diltiazem weaned and discontinued. Discharged on usual regimen. (5) Elevated INR: On warfarin for PAF. INR 6.6 at time of admission. No active bleeding. INR as high as 8.5- received 2.5 mg vitamin K x 1. INR fell as low as 1.7. Received warfarin 5 mg on 05/04. INR today = 2.2. Discharge on reduced dose of 2.5 mg daily. Ongoing management per [facility]. (6) Diabetes mellitus type 2, controlled: History of prediabetes. Random glucose at time of presentation 163. Hgb A1c = 6.9. Even though hyperglycemia is in setting of acute illness, Hgb A1c indicates progression to DM type 2. Received dexamethasone for COVID-19 pneumonia. Received insulin coverage as necessary. FBS morning of discharge was 102. Will need outpatient follow-up for DM. (7) Graves disease: TSH = 3.15. Continue methimazole. (8) Do not resuscitate status: As noted. (9) DVT prophylaxis: On warfarin with supratherapeutic INR at time of admission. INR fell as low as 1.7; received SQ enoxaparin. INR day of discharge was 2.3. (10) Discharge planning issues: Discharged to home. Internal Medicine follow-up with Dr. Charles. Total Time Total Time Spent Total Time Spent (In Minutes): 45 Discharge Plan Discharge Items Patient Disposition: Home - Self-Care Reason For Visit: cough, lost of taste and smell Discharge Diagnosis: pneumonia from COVID-19 atrial fibrillation (rapid and irregular heart beat) high INR (blood too thin) Activity: As commented below Activity Comment: Gradually increase activity as tolerated. Non-emergency contact: Primary Care Provider, Hospitalist and Work Force Advisor Call non-emergency contact if: you have any medication questions, your symptoms worsen and your temperature is above 101 Diet: Heart Healthy Diet Comment: consistent amount of foods that contain vitamin K Addtl Attending Provider Instructions: MEDICATION CHANGES: New warfarin Coumadin dose as of 05/05/20: 5 mg pills Take 1/2 pill (2.5 mg) every day until otherwise instructed. [facility] will contact you for your next INR. SUMMARY OF TEST RESULTS: COVID test 05/01/20 was positive. Chest x-ray showed pneumonia, probably from COVID. Electrocardiogram in Emergency Department showed atrial fibrillation (irregular and fast heart beat). Heart beat was regular the rest of your stay. INR was 6.3 on day of admission. INR was 2.2 on day of discharge. Your blood sugars were running high. Hemoglobin A1c was 6.9. Please ask Dr. Charles to follow. Fasting blood sugar day of discharge was 101. RECOMMENDATIONS FOR FOLLOW-UP: Dr. Charles's office will contact you for appointment by phone or computer. Home Isolation COVID-19 Instructions The following information about Home Isolation is from the CDC Website: https://www.cdc.gov/coronavirus/2019-ncov/hcp/khgkuqay-kgemjed-vwxedr.html Stay home except to get medical care People who are mildly ill with COVID-19 are able to isolate at home during their illness. You should restrict activities outside your home, except for getting medical care. Do not go to work, school, or public areas. Avoid using public transportation, ride-sharing, or taxis. Separate yourself from other people and animals in your home People: As much as possible, you should stay in a specific room and away from other people in your home. Also, you should use a separate bathroom, if available. Animals: You should restrict contact with pets and other animals while you are sick with COVID-19, just like you would around other people. Although there have not been reports of pets or other animals becoming sick with COVID-19, it is still recommended that people sick with COVID-19 limit contact with animals until more information is known about the virus. When possible, have another member of your household care for your animals while you are sick. If you are sick with COVID-19, avoid contact with your pet, including petting, snuggling, being kissed or licked, and sharing food. If you must care for your pet or be around animals while you are sick, wash your hands before and after you interact with pets and wear a face mask. Call ahead before visiting your doctor If you have a medical appointment, call the healthcare provider and tell them that you have or may have COVID-19. This will help the healthcare providers office take steps to keep other people from getting infected or exposed. Wear a face mask You should wear a face mask when you are around other people (e.g., sharing a room or vehicle) or pets and before you enter a healthcare providers office. If you are not able to wear a face mask (for example, because it causes trouble breathing), then people who live with you should not stay in the same room with you, or they should wear a face mask if they enter your room. Cover your coughs and sneezes Cover your mouth and nose with a tissue when you cough or sneeze. Throw used tissues in a lined trash can. Immediately wash your hands with soap and water for at least 20 seconds or, if soap and water are not available, clean your hands with an alcohol-based hand exercise instructor that contains at least 60% alcohol. Clean your hands often Wash your hands often with soap and water for at least 20 seconds, especially after blowing your nose, coughing, or sneezing; going to the bathroom; and before eating or preparing food. If soap and water are not readily available, use an alcohol-based hand exercise instructor with at least 60% alcohol, covering all surfaces of your hands and rubbing them together until they feel dry. Soap and water are the best option if hands are visibly dirty. Avoid touching your eyes, nose, and mouth with unwashed hands. Avoid sharing personal household items You should not share dishes, drinking glasses, cups, eating utensils, towels, or bedding with other people or pets in your home. After using these items, they should be washed thoroughly with soap and water. Clean all high-touch surfaces everyday High touch surfaces include counters, tabletops, doorknobs, bathroom fixtures, toilets, phones, keyboards, tablets, and bedside tables. Also, clean any surfaces that may have blood, stool, or body fluids on them. Use a household cleaning spray or wipe, according to the label instructions. Labels contain inst ructions for safe and effective use of the cleaning product including precautions you should take when applying the product, such as wearing gloves and making sure you have good ventilation during use of the product. Monitor your symptoms Seek prompt medical attention if your illness is worsening (e.g., difficulty breathing).Beforeseeking care, call your healthcare provider and tell them that you have, or are being evaluated for, COVID-19. Put on a face mask before you enter the facility. These steps will help the healthcare providers office to keep other people in the office or waiting room from getting infected or exposed. Ask your healthcare provider to call the local or state health department. Persons who are placed under active monitoring or facilitated self- monitoring should follow instructions provided by their local health department or occupational health professionals, as appropriate. When working with your local health department check their available hours. If you have a medical emergency and need to call 911, notify the dispatch personnel that you have, or are being evaluated for COVID-19. If possible, put on a face mask before emergency medical services arrive. Discontinuing home isolation Patients with confirmed COVID-19 should remain under home isolation precautions until the risk of secondary transmission to others is thought to be low. The decision to discontinue home isolation precautions should be made on a [id number] basis, in consultation with healthcare providers and state and local health departments. According to the CDC: You can be around others after: 10 days since symptoms first appeared and 24 hours with no fever without the use of fever-reducing medications and Other symptoms of COVID-19 are improving* OTHER INSTRUCTIONS: Seek medical attention if you have: * temperature above 101 * chest pain or trouble breathing * abdominal pain, nausea, vomiting * diarrhea, dark stools or bloody stools * any unanswered questions or concerns Call 911 if symptoms are severe. Please take good care of yourself. Call if you have any questions or problems. You can reach a [facility] hospitalist on duty at [facility] 24 hours a day by calling [phone]. My cell # is [phone]. Pending Studies at Discharge: No Stand-Alone Forms: My [facility], Smoking Cessation Medications and DC Order Prescriptions: Continued digoxin 125 mcg tablet 125 mcg PO QAM RF: 0 multivitamin tablet 1 tab PO QAM RF: 0 methimazole 5 mg tablet 2.5 mg PO QAM RF: 0 metoprolol succinate 100 mg Tablet Extended Release 24 Hr 100 mg PO Q12H RF: 0 Changed warfarin 5 mg Tablet See Rx Instructions .ROUTE .COMPLEX Qty: 0 RF: 0 Discharge Orders: Discharge Order (Routine); Ordered 05/05/20 Ordered By: Popeye Osborn/Other Patient Handouts: Managing Type 2 Diabetes, 5 Steps for Eating Healthier, Diabetes: Meal Planning, A1C Admission Data Admit Date/Time: 05/01/20 16:26 Attending Provider: Popeye Powell Admit Provider: Hardeep Pereyra Primary Care Provider: Jenny Charles Other Providers: Dannie Dickinson ; Hardeep Pereyra ; Adolfo Henning Other Interventions: Discharge Summary Assessment (RN) Last Done: 05/05/20 16:24
== END 2020-05-05 18:10 | disposition home or self-care (01) | DRG 177 ==
LOC: ED 11:04 → SUATTDRO 16:26 → EDINP 17:39 → 2S 05-02 19:23